=== PATIENT | male | born 1975 | race Two or more races ===

== ENCOUNTER 2023-05-27 08:13 | Emergency (ER) | payer MEDICAID, SELFPAY ==
--- NOTE | ~2023-05-27 | CT_ITS ---
EXAMINATION: CT ABDOMEN AND PELVIS WITH CONTRAST CLINICAL INFORMATION: Pain COMPARISON: None available. TECHNIQUE: Multidetector volumetric images were obtained from the superior aspect of the liver through the pubic symphysis following administration 85 mL of Omnipaque 350 intravenous contrast. Sagittal and coronal reformatted images were obtained on the technologist's workstation. Oral contrast: No This CT examination was performed using dose optimization techniques as appropriate, variously including the following: *Automated exposure control *Adjustment of mA and/or kV according to patient size (this includes techniques or standardized protocols for targeted exams where dose is matched to indication/reason for exam; i.e. extremities or head) *Use of iterative reconstruction technique DLP: 958 mGy-cm FINDINGS: LUNG BASES: 5 mm nodule right lung base LIVER, GALLBLADDER, AND BILIARY TREE: Low-density in the liver likely fatty change. Hepatitis cannot be excluded. Likely focal sparing around the gallbladder. The gallbladder is unremarkable with no evidence of radiopaque gallstones, gallbladder wall thickening, or obvious pericholecystic inflammatory changes. PANCREAS: Unremarkable. SPLEEN: Unremarkable. ADRENAL GLANDS: Unremarkable. KIDNEYS AND URETERS: Prominent renal collecting system and prominent right ureter which does lead up to a small 3 mm calcification at the UVJ. Nonobstructing calculus lower pole left kidney. Low-density lesion which is small lower pole left may well represent an evolving cyst. BLADDER: Bladder is decompressed GASTROINTESTINAL TRACT: The small and large bowel are unremarkable. The appendix is unremarkable. ABDOMINAL WALL: No significant hernia is appreciated. LYMPH NODES: Soft tissue density anterior to the vena cava could represent a prominent lymph node. Short axis I.7 cm. Differential would include lobulated extension of the liver. Another density adjacent short axis I.2 cm could represent another prominent node VASCULAR: Some atherosclerotic changes are noted. PELVIC VISCERA: Unremarkable. OSSEOUS STRUCTURES: Degenerative changes. No acute bony finding. CT/CT abdomen pelvis w IV con IMPRESSION: Mild hydronephrosis on the right which does lead up to 3 mm calculus at the UVJ. Overall decreased attenuation liver which may be consistent with fatty change. Hepatitis cannot be excluded. Findings consistent with soft tissue density in the zane which could represent prominent lymph nodes. These could be reactive to liver. No other bulky adenopathy in the abdomen pelvis. Malignancy cannot be excluded. I Would recommend a short-term follow-up here in 8 weeks for continued evaluation. 5 mm nodule at the right lung base. Fleischner criteria given below Per the 2017 revised Fleischner Society guidelines, no routine follow-up is necessarily required in low-risk patients, and consideration of 12 month follow-up CT is recommended for patients at high-risk for the development of pulmonary neoplasm. Fleischner guidelines were followed.
[2023-05-27 08:26] VITALS: BP 147/93; PULSE 71; RESP 22; TEMP 36.3; O2SAT 100; BMI 52.1
--- NOTE | 2023-05-27 09:12 | ED.GENADULT ---
HPI - General Adult General Chief complaint: Abdominal Pain Stated complaint: abd pain shooting down Time Seen by Provider: 05/27/23 09:11 Source: patient Mode of arrival: ambulatory Limitations: no limitations History of Present Illness HPI narrative: Patient is a 48 year old assigned male at with a history of DM presenting to the emergency department today with right sided lower abdominal pain. Patient states that over the last few days he has had right sided lower abdominal pain that radiates to his testicles with nausea. Patient denies any dizziness, lightheadedness, vomiting, fever, chills, blurry vision, double vision, loss of vision, chest pain, difficulty breathing, shortness of breath, back pain, night sweats, pain with urination, increased urinary frequency, increased urinary urgency, blood in his urine or stool, syncope or a near syncopal episode, recent trauma or falls, bowel incontinence, bladder incontinence, bowel retention, bladder retention, or any other complaints at this time. Onset (ago): day(s) Location: abdomen and right Severity: mild Severity scale (1-10): 3 Quality: aching and dull Pain Consistency: constant Relieving factors: none Exacerbating factors: none Associated symptoms: nausea/vomiting Treatments prior to arrival: none Related Data Previous Rx's Medication Instructions Recorded naproxen 500 mg tablet 500 mg PO BID 7 days #14 tabs 05/27/23 tamsulosin 0.4 mg capsule 0.4 mg PO DAILY #7 caps 05/27/23 Allergies Allergy/AdvReac Type Severity Reaction Status Date / Time Penicillins Allergy Mild UNKNOWN Verified 05/27/23 08:25 penicillin V Allergy Unknown unknown Verified 03/26/17 00:00 Review of Systems Constitutional: Constitutional: Reports no additional constitutional complaints, Denies chills, Denies fever(s) and Denies night sweats Eyes: Eyes: Reports no additional eye complaints, Denies blurry vision, Denies change in vision, Denies diplopia, Denies eye discharge, Denies loss of vision and Denies eye pain ENT: Denies dizziness Cardiovascular: Cardiovascular: Reports no additional cardiovascular complaints, Reports chest pain, Denies lightheadedness, Denies Loss of Consciousness and Denies dyspnea Respiratory: Respiratory: Reports no additional respiratory complaints and Denies dyspnea Gastrointestinal: Gastrointestinal: Reports no additional gastrointestinal complaints, Reports abdominal pain, Denies melena, Denies hematochezia, Denies change in bowel habits, Denies change in stool character, Reports nausea and Denies vomiting Genitourinary: Genitourinary: Reports no additional male genitourinary complaints, Denies hematuria, Denies oliguria, Denies difficulty urinating, Denies dysuria, Denies urinary frequency, Denies urinary hesitancy, Denies urinary incontinence and Denies urinary urgency Musculoskeletal: Musculoskeletal: Reports no additional musculoskeletal complaints, Denies numbness and Denies tingling Neurologic: Denies dizziness, Denies loss of vision, Denies numbness and Denies tingling Psychiatric: Psychiatric: Reports no additional psychiatric complaints Endocrine: Endocrine: Reports no additional endocrine complaints Hematologic/Lymphatic: Hematologic/Lymphatic: Reports no additional hematologic/lymphatic complaints Allergic/Immunologic: Allergic/Immunologic: Reports no additional allergic/immunologic complaints PMFSH Past Medical History Attestation statement: The following information was validated with the patient. Source: old records reviewed and nursing notes reviewed Social History Social History Unable to assess alcohol history related to: Unknown Smoked in Last 30 Days: Yes Use of substances other than those prescribed or required for medical reasons: No Advance Directives: No Physical Exam ED Vital Signs: Vital Signs - 24 hr 05/27/23 08:26 05/27/23 09:20 05/27/23 09:21 Temperature 97.4 F Pulse Rate 71 69 Respiratory Rate 22 H 18 18 Blood Pressure 147/93 H 129/77 Pulse Oximetry 100 97 Oxygen Delivery Method Room Air Room Air 05/27/23 11:16 Temperature Pulse Rate 65 Respiratory Rate 20 Blood Pressure 135/79 Pulse Oximetry 96 Oxygen Delivery Method Room Air BMI result Body Mass Index 52.1 Const General: cooperative, no acute distress, alert and awake Nutritional Appearance: well nourished Orientation/consciousness: patient oriented x3 Limitations: no limitations [facility] Head: Yes normal to inspection and Yes atraumatic Ears: hearing grossly normal bilaterally and external ears normal General nose exam: Normal external nose present, no nasal discharge noted and no epistaxis Face and sinus: Yes normal facial exam, No abrasion and No laceration Mouth: Normal oral and palatal mucosa present, no drooling and no muffled voice Eyes General: appearance normal, both eyes and all related structures Periorbital: periorbital findings normal Eyelids: Yes eyelids normal Conjunctivae: conjunctivae normal Pupils: Equal, round and reactive pupils present EOM: EOMs intact bilaterally Neck Neck: Yes normal visual inspection, Yes full ROM and Yes no lymphadenopathy Chest Chest palpation & inspection: normal inspection of the chest Resp Effort & Inspection: normal respiratory effort and able to speak in complete sentences Auscultation: clear to auscultation bilaterally Cardio Rate: regular rate Rhythm: regular rhythm GI Inspection: Yes normal to inspection Palpation (GI): Soft to palpation, not firm, nontender and no guarding Neuro General: patient oriented x3 and moves all extremities Cranial nerves: Yes Equal, round and reactive pupils present Cognition (Neuro): normal cognition Motor exam (neuro): 5/5 motor strength present throughout Sensory Exam: Normal double simultaneous stimulation for sensation Coordination: [id number] test normal Extrem General: Yes normal to inspection, Yes full ROM and Yes capillary refill normal Psych Appearance: grossly normal Mental Status: mental status grossly normal Affect: normal affect Attitude: cooperative Thought process: Normal thought process present Thought content: Normal thought content present Insight: Good insight present (Psych) Medications Administered Discontinued Medications Generic Name Dose Route Start Last Admin Trade Name Freq PRN Reason Stop Dose Admin Sodium Chloride 1,000 mls @ 999 mls/hr 05/27/23 09:15 05/27/23 10:59 Ns IV 05/27/23 10:15 Infused .Q1H1M TONY Infusion Iohexol 85 ml 05/27/23 10:30 05/27/23 10:31 Iohexol 350 Mg/Ml 100 Ml Infus..Btl IV 05/27/23 10:31 85 ml ONCE ONE Administration Morphine Sulfate 4 mg 05/27/23 09:15 05/27/23 09:20 Morphine Sulfate 4 Mg/Ml Cartridge IVPUSH 05/27/23 09:16 4 mg ONCE ONE Administration Protocol Ondansetron HCl 4 mg 05/27/23 09:15 05/27/23 09:20 Ondansetron Hcl 4 Mg/2 Ml Vial IVPUSH 05/27/23 09:16 4 mg ONCE ONE Administration Medical Decision Making Medical Decision Making [facility] Narrative: Patient is a 48 year old assigned male at with a history of DM presenting to the emergency department today with abdominal pain and nausea. Patient's physical exam was unremarkable. Patient's blood work was unremarkable. Patient's urine showed no acute process. Patient's abdominal CT showed a 3mm UVJ kidney stone, as well as a soft tissue density in the zane which radiology recommended following up on further. I explained my physical exam findings as well as all test results to the patient. I answered all questions asked by the patient. Patient received IV Zofran and Morphine which he stated helped his symptoms significantly. I stressed the importance of the patient taking his medication as prescribed. I stressed the importance of the patient following up with his primary care provider, a urologist, and a GI specialist. I stressed the importance of the patient returning to the emergency department immediately if his symptoms were to worsen or if he were to develop any dizziness, shortness of breath, difficulty breathing, chest pain, blurry vision, loss of vision, nausea, vomiting, abdominal pain, fever, chills, back pain, or any other complaints. Patient verbalized agreement and understanding with this treatment plan and discharge. Differential Diagnosis Differential Diagnoses: The differential diagnosis associated with the presentation includes Renal calculi Liver abnormality Admission/Observation Consideration of admission/observation: Escalation of care including admission/observation considered Patient would have been admitted to the hospital had his work up had any findings where hospital admission was appropriate and his clinical presentation warranted hospital admission. Lab Data MDM Lab Attestation statement: I reviewed the patient's lab results. My interpretation of these studies and their corresponding values is that they are grossly normal. 05/27/23 09:12 05/27/23 09:12 Labs: Lab Results 05/27/23 05/27/23 Range/Units 09:12 09:23 WBC 7.9 (4.8-10.8) X10*3/uL RBC 4.95 (4.60-5.80) X10*6/uL Hgb 14.8 (14.0-18.0) g/dl Hct 46.1 (42.0-52.0) % MCV 93.1 (80.0-98.0) fL MCH 29.9 (27.0-33.0) pg MCHC 32.1 (31.0-36.0) g/dl RDW 13.8 (11.0-16.0) % Plt Count 220 (160-400) X10*3/uL MPV 11.6 (9.4-12.4) fL Immature Gran % (Auto) 0.3 (0.0-0.4) % Neut % (Auto) 56.4 (45-73) % Lymph % (Auto) 31.7 (20-40) % [place] % (Auto) 7.5 (2-11) % Eos % (Auto) 3.6 (0-4) % Baso % (Auto) 0.5 (0-2) % Lymph # (Auto) 2.5 (1.2-4.9) X10*3/uL [place] # (Auto) 0.6 (0.1-1.2) X10*3/uL Eos # (Auto) 0.3 (0.0-0.4) X10*3/uL Baso # (Auto) 0.0 (0.0-0.2) X10*3/uL Abs Immat Gran (auto) 0.02 (0.00-0.03) X10*3/uL Absolute Neuts (auto) 4.4 (2.0-8.3) x10*3/uL Absolute Nucleated RBC 0.000 (0.0-0.012) X10*3/uL Nucleated RBC % (auto) 0.0 (0.0-0.2) /100WBC Sodium 140 (135-145) mmol/L Potassium 4.1 (3.3-5.1) mmol/L Chloride 107 (96-108) mmol/L Carbon Dioxide 25 (22-29) mmol/L Anion Gap 12 (12-20) BUN 8 L (9-16) mg/dL Creatinine 0.80 (0.5-1.4) mg/dL Estim Creat Clear Calc 151.2 Estimated GFR > 60 Random Glucose 191 H (60-115) mg/dL Calcium 9.1 (8.4-10.2) mg/dL Total Bilirubin 0.3 (0.0-1.0) mg/dL Direct Bilirubin 0.1 (0.0-0.5) mg/dL AST 24 (5-37) U/L ALT 36 (0-40) U/L Alkaline Phosphatase 95 (39-117) U/L Total Protein 8.0 (6.5-8.0) g/dL Albumin 4.0 (3.5-5.0) g/dL Lipase 33 (8-78) U/L Urine Color Yellow Urine Appearance Clear Urine pH 5.5 (5.0-9.0) Ur Specific [place] 1.025 (1.005-1.025) Urine Protein 30 (1+) H (Neg-Trace) mg/dL Urine Glucose (UA) Negative (Negative) mg/dL Urine Ketones Negative (Negative) mg/dL Urine Blood Trace H (Negative) Urine Nitrite Negative (Negative) Ur Leukocyte Esterase Negative (Negative) Urine RBC 6-10 H (0-2) /HPF Urine WBC 0-5 (0-5) /HPF Ur Squamous Epith Cells 0-2 (0-2) /HPF Urine Bacteria None Seen (None Seen) Hyaline Casts 0-2 (0-2) /LPF Independent Interpretation I performed an independent interpretation of an: CT Scan Interpretation: My interpretation is in agreement with the radiologist's impression of this imaging study. EXAMINATION: CT ABDOMEN AND PELVIS WITH CONTRAST CLINICAL INFORMATION: Pain COMPARISON: None available. TECHNIQUE: Multidetector volumetric images were obtained from the superior aspect of the liver through the pubic symphysis following administration 85 mL of Omnipaque 350 intravenous contrast. Sagittal and coronal reformatted images were obtained on the technologist's workstation. Oral contrast: No This CT examination was performed using dose optimization techniques as appropriate, variously including the following: *Automated exposure control *Adjustment of mA and/or kV according to patient size (this includes techniques or standardized protocols for targeted exams where dose is matched to indication/reason for exam; i.e. extremities or head) *Use of iterative reconstruction technique DLP: 958 mGy-cm FINDINGS: LUNG BASES: 5 mm nodule right lung base LIVER, GALLBLADDER, AND BILIARY TREE: Low-density in the liver likely fatty change. Hepatitis cannot be excluded. Likely focal sparing around the gallbladder. The gallbladder is unremarkable with no evidence of radiopaque gallstones, gallbladder wall thickening, or obvious pericholecystic inflammatory changes. PANCREAS: Unremarkable. SPLEEN: Unremarkable. ADRENAL GLANDS: Unremarkable. KIDNEYS AND URETERS: Prominent renal collecting system and prominent right ureter which does lead up to a small 3 mm calcification at the UVJ. Nonobstructing calculus lower pole left kidney. Low-density lesion which is small lower pole left may well represent an evolving cyst. BLADDER: Bladder is decompressed GASTROINTESTINAL TRACT: The small and large bowel are unremarkable. The appendix is unremarkable. ABDOMINAL WALL: No significant hernia is appreciated. LYMPH NODES: Soft tissue density anterior to the vena cava could represent a prominent lymph node. Short axis I.7 cm. Differential would include lobulated extension of the liver. Another density adjacent short axis I.2 cm could represent another prominent node VASCULAR: Some atherosclerotic changes are noted. PELVIC VISCERA: Unremarkable. OSSEOUS STRUCTURES: Degenerative changes. No acute bony finding. CT/CT abdomen pelvis w IV con IMPRESSION: Mild hydronephrosis on the right which does lead up to 3 mm calculus at the UVJ. Overall decreased attenuation liver which may be consistent with fatty change. Hepatitis cannot be excluded. Findings consistent with soft tissue density in the zane which could represent prominent lymph nodes. These could be reactive to liver. No other bulky adenopathy in the abdomen pelvis. Malignancy cannot be excluded. I Would recommend a short-term follow-up here in 8 weeks for continued evaluation. 5 mm nodule at the right lung base. Fleischner criteria given below Per the 2017 revised Fleischner Society guidelines, no routine follow-up is necessarily required in low-risk patients, and consideration of 12 month follow-up CT is recommended for patients at high-risk for the development of pulmonary neoplasm. Fleischner guidelines were followed. Dictated By: Vadim Julian MD Signed By: Electronically signed by Vadim Julian MD 05/27/23 5625 Radiology Impression Discussion of test interpretation with radiology: I have reviewed the radiologist's reading. Chronic Conditions Patient?s care impacted by: Diabetes Discharge Plan Discharge Clinical Impression: Abdominal pain, Calculus, renal, Abnormal CT of liver Patient Disposition: Home, Self-Care Instructions: Kidney Stones (ED), Abdominal Pain (ED) Additional Instructions: You have a kidney stone and some abnormal findings around your liver via CT. Both of these issues need followed up on. The kidney stone you will follow up with urology for and the liver issues you will follow up with GI for. Follow up with your primary care provider, GI specialist, and a urologist. Return to the emergency department immediately if your symptoms worsen or if you develop any dizziness, shortness of breath, difficulty breathing, chest pain, blurry vision, loss of vision, nausea, vomiting, abdominal pain, fever, chills, back pain, or any other complaints. Prescriptions: New tamsulosin 0.4 mg capsule 0.4 mg PO DAILY Qty: 7 0RF naproxen 500 mg tablet 500 mg PO BID 7 Days Qty: 14 0RF Referrals: [facility] [place] Gastroenterology Services [Provider Group] (Call to establish and follow up with a GI specialist for your abnormal CT findings.) [facility] Family Medicine [Provider Group] (Call to establish and follow up with a primary care provider. If you already have a primary care provider, please follow up with them.) [facility] Primary Care, [facility] [Provider Group] (Call to establish and follow up with a primary care provider. If you already have a primary care provider, please follow up with them.) [facility] Primary Care,Serjio [Provider Group] (Call to establish and follow up with a primary care provider. If you already have a primary care provider, please follow up with them.) [facility] [place] Urology Services [Provider Group] (Call to establish and follow up with a urologist.) Stand Alone Forms: Work/School Release Interventions: ED Discharge Assessment Last Done: 05/27/23 12:03 Discharge Date/Time: 05/27/23 12:04 Print Language: French
[2023-05-27 09:20] VITALS: RESP 18
[2023-05-27] MEDS: 0.9 % Sodium Chloride 1,000 ML 999 ML IV (09:20)
[2023-05-27] MEDS: Morphine Sulfate 4 MG/ML CARTRIDGE IVPUSH (09:20)
[2023-05-27] MEDS: ondansetron HCL 4 MG/2 ML VIAL IVPUSH (09:20)
[2023-05-27 09:21] VITALS: BP 129/77; PULSE 69; RESP 18; O2SAT 97
[2023-05-27 09:23] LABS: MANUAL DIFF FLAG NO
[2023-05-27 09:26] LABS: Basophils Percent Auto 0.5 % (0-2); Eosinophils Absolute Auto 0.3 X10*3/uL (0.0-0.4); Eosinophils Percent Auto 3.6 % (0-4); Hematocrit 46.1 % (42.0-52.0); Hemoglobin 14.8 g/dl (14.0-18.0); Imm Gran Abs Auto 0.02 X10*3/uL (0.00-0.03); Imm Gran Pct Auto 0.3 % (0.0-0.4); Lymphocytes Absolute Auto 2.5 X10*3/uL (1.2-4.9); Lymphocytes Percent Auto 31.7 % (20-40); Mean Corpuscular HGB Conc 32.1 g/dl (31.0-36.0); Mean Corpuscular Hemoglobin 29.9 pg (27.0-33.0); Mean Corpuscular Volume 93.1 fL (80.0-98.0); Mean Platelet Volume 11.6 fL (9.4-12.4); Monocytes Absolute Auto 0.6 X10*3/uL (0.1-1.2); Monocytes Percent Auto 7.5 % (2-11); Neutrophils Absolute Auto 4.4 x10*3/uL (2.0-8.3); Neutrophils Percent Auto 56.4 % (45-73); Platelet Count 220 X10*3/uL (160-400); Red Blood Count 4.95 X10*6/uL (4.60-5.80); Red Cell Distribution Width 13.8 % (11.0-16.0); White Blood Count 7.9 X10*3/uL (4.8-10.8)
[2023-05-27 09:37] LABS: Alanine Aminotransferase 36 U/L (0-40); Alkaline Phosphatase 95 U/L (39-117); Anion Gap 12 (12-20); Aspartate Amino Transferase 24 U/L (5-37); Bilirubin Direct 0.1 mg/dL (0.0-0.5); Bilirubin Total 0.3 mg/dL (0.0-1.0); Blood Urea Nitrogen 8 mg/dL (9-16); Calcium 9.1 mg/dL (8.4-10.2); Carbon Dioxide 25 mmol/L (22-29); Chloride 107 mmol/L (96-108); Creatinine Clr Calc Pharmacy 151.2; Estimated Glomerular Filt Rate > 60; Glucose Random 191 mg/dL (60-115); Lipase 33 U/L (8-78); Potassium 4.1 mmol/L (3.3-5.1); Sodium 140 mmol/L (135-145)
[2023-05-27 09:38] LABS: Appearance Urine Clear; Color Urine Yellow; Glucose Urine UA Negative (Negative); Leukocyte Esterase Urine Negative (Negative); Nitrite Urine Negative (Negative); PH 5.5 (5.0-9.0); Specific Gravity - Urine 1.025 (1.005-1.025); UMIC TRIGGER UACC YES; Urine Blood Trace (Negative); Urine Ketones Negative (Negative); Urine Protein 30 (1+) mg/dL (Neg-Trace)
[2023-05-27 09:42] LABS: Bacteria Urine None Seen (None Seen); Hyaline Casts Urine 0-2 /LPF (0-2); Squamous Epithelial Cell Urine 0-2 /HPF (0-2); WBC Urine 0-5 /HPF (0-5)
[2023-05-27] MEDS: iohexoL 350 MG/ML 100 ML INFUS..BTL 85 ML IV (10:31)
[2023-05-27 11:16] VITALS: BP 135/79; PULSE 65; RESP 20; O2SAT 96
== END 2023-05-27 12:04 | disposition home or self-care (01) ==
PROVIDERS: Physician Assistant Medical; Emergency Provider Emergency Medicine
DX: N20.0 Calculus of kidney (principal); R10.31 Right lower quadrant pain; R11.2 Nausea with vomiting, unspecified; Z79.899 Other long term (current) drug therapy
CPT/HCPCS: 36415; 74177; 80048; 80076; 81001; 83690; 85025; 96361; 96374; 96375; 99284; J2270; J2405; Q9967

== ENCOUNTER 2023-07-09 13:17 | Outpatient (REF) | payer OTHER, SELFPAY ==
--- NOTE | ~2023-07-09 | XR_ITS ---
EXAMINATION: XR KNEE, LEFT CLINICAL INFORMATION: Reason for Exam PAIN COMPARISON: None TECHNIQUE: 3 views of the knee FINDINGS: No acute fracture or dislocation. Moderate degenerative changes in the knee with loss of medial compartment joint space and tricompartment osteophytes. Small suprapatellar joint effusion. Soft tissues are unremarkable. XR/XR knee LT 2V IMPRESSION: * No acute osseous abnormality. * Moderate degenerative changes of the knee. Small suprapatellar joint effusion.
== END 2023-07-09 13:18 | disposition home or self-care (01) ==
LOC: HO.HHCX 13:17
PROVIDERS: Visit Provider Nurse Practitioner Primary Care
DX: M25.562 Pain in left knee (principal); G89.29 Other chronic pain
CPT/HCPCS: 73560

== ENCOUNTER 2023-08-03 10:36 | Outpatient (REF) | payer OTHER, SELFPAY ==
[2023-08-03 12:31] LABS: Cholesterol 134 mg/dL (<200); HDL Cholesterol 37 mg/dL (>40); LDL Cholesterol Calculated 79 mg/dL (<100); Triglycerides 92 mg/dL (<150)
[2023-08-03 12:38] LABS: HBS Num1 0.59 mIU/mL (0-7.99); HBc Num1 0.06 S/CO (0.00-0.79); HBsAGNum1 0.27 S/CO (0.00-0.99); HIV AB/AG Nonreactive (Nonreactive); HIV Num 1 0.04 S/CO (0.00-0.99); Hepatitis A Antibody IgM 0.16 Index (0-0.79); Hepatitis B Core Antibody Nonreactive (Nonreactive); Hepatitis B Surface Antigen Negative (Negative); ~HepC Num1 0.16 S/CO (0.00-0.79); ~Hepatitis A Antibody IgM Nonreactive (Nonreactive); ~Hepatitis B Surface Antibody NONREACTIVE (Nonreactive); ~Hepatitis C Antibody Nonreactive (Nonreactive)
[2023-08-03 12:46] LABS: Creatinine Urine 121.98 mg/dL; Microalbum/Creatinine Ratio Ur 22.9 ug/mg cr (<30)
[2023-08-05 17:28] LABS: RPR Rapid Plasma Reagin NON-REACTIVE (NON-REACTIVE)
== END 2023-08-03 10:37 | disposition home or self-care (01) ==
LOC: HO.HHCL 10:36
PROVIDERS: Visit Provider Nurse Practitioner Primary Care
DX: Z11.3 Encounter for screening for infections with a predominantly sexual mode of transmission (principal); Z11.4 Encounter for screening for human immunodeficiency virus [HIV]; E11.65 Type 2 diabetes mellitus with hyperglycemia; R93.5 Abnormal findings on diagnostic imaging of other abdominal regions, including retroperitoneum
CPT/HCPCS: 36415; 80061; 82043; 82570; 86592; 86704; 86706; 86709; 86803; 87340; 87389

== ENCOUNTER 2023-08-13 10:09 | Emergency (ER) | payer MEDICAID, SELFPAY ==
--- NOTE | ~2023-08-13 | XR_ITS ---
EXAMINATION: XR KNEE, LEFT CLINICAL INFORMATION: Left knee pain COMPARISON: 07/09/2023. TECHNIQUE: Four views of the left knee. FINDINGS: No new acute fracture or dislocation seen. There is mild to moderate narrowing in the medial joint space compartment. No osteochondral lesions. Spurring changes of the tibial plateau, femoral condyles, and patella. No significant joint effusion. Fibular head is intact. XR/XR knee LT 4V IMPRESSION: Degenerative changes. No acute fracture or dislocation.
[2023-08-13 10:12] VITALS: BP 169/95; PULSE 90; RESP 20; TEMP 37; O2SAT 97; BMI 53.0
--- NOTE | 2023-08-13 13:18 | ED_ITS ---
HPI - Extremity Injury (Lower) General Chief Complaint: Extremity Injury, Lower Stated Complaint: Knee pain Time Seen by Provider: 08/13/23 13:05 Source: patient Mode of arrival: ambulatory Limitations: no limitations History of Present Illness HPI Narrative: 48 yo male with history of DM here with complaints of right knee pain x 1.5 week. No known injury or trauma recently. patient did have a fall about 6 year s ago landing on the knee and has had intermittent pain since then. He was never seen after the injury. Patient did see his primary care doctor on July 04 for this and had an outpatient x-ray but he does not know the results of this. He is taking naproxen at home with continued symptoms. He denies any associated numbness, tingling or weakness of the extremity. No redness, swelling or fevers or chills. Related Data Previous Rx's Medication Instructions Recorded naproxen 500 mg tablet 500 mg PO BID 7 days #14 tabs 05/27/23 tamsulosin 0.4 mg capsule 0.4 mg PO DAILY #7 caps 05/27/23 cyclobenzaprine 10 mg tablet 10 mg PO TID PRN muscle spasm #15 08/13/23 tabs diclofenac sodium 1 % topical gel 2 g topical QID #100 grams 08/13/23 (Voltaren Arthritis Pain) lidocaine 5 % topical patch 1 patch topical DAILY #15 ea 08/13/23 (Lidoderm) naproxen 500 mg tablet 500 mg PO BID PRN pain #30 tabs 08/13/23 Allergies Allergy/AdvReac Type Severity Reaction Status Date / Time Penicillins Allergy Mild UNKNOWN Verified 08/13/23 10:15 penicillin V Allergy Unknown unknown Verified 08/13/23 10:15 Review of Systems Review of Systems: Yes all other systems are reviewed and are negative Constitutional: Constitutional: Reports no additional constitutional complaints, Denies body ache(s), Denies chills, Denies fever(s), Denies headache(s) and Denies weakness Eyes: Eyes: Reports no additional eye complaints and Denies change in vision ENT: Reports system reviewed and no additional complaints, except as documented, Denies dizziness, Denies headache(s), Denies nasal congestion, Denies nasal discharge and Denies neck pain Cardiovascular: Cardiovascular: Reports no additional cardiovascular complaints, Denies chest pain, Denies leg edema and Denies dyspnea Respiratory: Respiratory: Reports no additional respiratory complaints, Denies cough and Denies dyspnea Gastrointestinal: Gastrointestinal: Reports no additional gastrointestinal complaints, Denies abdominal pain, Denies diarrhea, Denies nausea and Denies vomiting Genitourinary: Genitourinary: Denies urinary incontinence Musculoskeletal: Musculoskeletal: Reports no additional musculoskeletal complaints, Denies back pain, Reports arthralgias, Denies joint swelling, Denies limited range of motion, Denies neck pain, Denies numbness and Denies tingling Integumentary/Breasts: Skin/Breast: Reports system reviewed and no additional complaints, except as docu and Denies rash Neurologic: Reports system reviewed and no additional complaints, except as documented, Denies Abnormal speech present, Denies dizziness, Denies headache(s), Denies numbness, Denies tingling and Denies weakness PMFSH Past Medical History Attestation statement: The following information was validated with the patient. Source: old records reviewed and nursing notes reviewed Social History Social History Unable to assess alcohol history related to: Unknown Advance Directives: No Physical Exam Vital Signs: Vital Signs: Last Vital Signs Temp 98.6 F 08/13/23 10:12 Pulse 90 08/13/23 10:12 Resp 20 08/13/23 10:12 BP 169/95 H 08/13/23 10:12 Pulse Ox 97 08/13/23 10:12 O2 Del Method Room Air 08/13/23 10:12 BMI result Body Mass Index 53.0 Const: General: cooperative, healthy appearing, comfortable and no acute distress Orientation/consciousness: patient oriented x3 Limitations: no limitations HEENT: Head: Yes normal to inspection Ears: hearing grossly normal bilaterally General nose exam: Normal external nose present Face and sinus: Yes normal facial exam Mouth: Normal oral and palatal mucosa present Throat: Yes posterior oropharynx normal Eyes: General: appearance normal, both eyes and all related structures Pupils: Equal, round and reactive pupils present Neck: Neck: Yes normal visual inspection Chest: Chest palpation & inspection: normal inspection of the chest Resp: Effort & Inspection: normal respiratory effort Auscultation: clear to auscultation bilaterally Cardio: Rate: regular rate Rhythm: regular rhythm Peripheral pulses: Peripheral pulses 2+ throughout GI: Inspection: Yes normal to inspection Palpation (GI): Soft to palpation and nontender Auscultation: normal bowel sounds Back/Spine/Pelvis: Thoracic/Lumbar Spine: thoracic and lumbar spine normal to inspection Skin: General skin exam: no rashes or lesions noted Neuro: General: patient oriented x3, no focal motor deficits and normal sensation to monofilament Cranial nerves: Yes Equal, round and reactive pupils present Cognition (Neuro): normal cognition Speech: No Abnormal speech present Gait exam (Neuro): Normal gait present Motor exam (neuro): 5/5 motor strength present throughout Extrem: Other: There is tenderness to the left anterior knee with full active and passive range of motion. Normal DP and PT pulses. Normal sensation. No posterior knee pain. No swelling or pain over the left calf. General: Yes normal to inspection Course Course Course Narrative: X-rays show Degenerative changes with no other focal finding. Patient be sent home with supportive measures and recommendations to follow up outpatient with primary care and/or Orthopedics. Reviewed worrisome signs and symptoms of when to return to the emergency room. Comfortable plan for discharge home. Medical Decision Making Medical Decision Making [facility] Narrative: 48 yo male with history of DM here with complaints of right knee pain x 1.5 week. No known injury or trauma recently. patient did have a fall about 6 years ago landing on the knee and has had intermittent pain since then. He was never seen after the injury. Patient did see his primary care doctor on July 04 for this and had an outpatient x-ray but he does not know the results of this. He is taking naproxen at home with continued symptoms. He denies any associated numbness, tingling or weakness of the extremity. No redness, swelling or fevers or chills. There is tenderness to the left anterior knee with full active and passive range of motion. Normal DP and PT pulses. Normal sensation. No posterior knee pain. No swelling or pain over the left calf. Will check x-rays Differential Diagnosis Differential Diagnoses: The differential diagnosis associated with the presentation includes contusion, sprain, strain, ligamental injury, arthritis No clinical findings concerning for septic joint, DVT, cellulitis Admission/Observation Consideration of admission/observation: Escalation of care including admission/observation considered low concern for vascular injury, complex fracture or dislocation or septic joint, DVT or cellulitis requiring advanced imaging, urgent orthopedic consultation Independent Interpretation I performed an independent interpretation of an: Plain X-Ray Interpretation: I independently reviewed the x-ray and agree with the radiology report Radiology Impression Discussion of test interpretation with radiology: I have reviewed the radiologist's reading. Radiologist Impression: Launch?Image [address] [address] XRay Report Signed Patient: Nixon Higginbotham MR#: [id number] : 1975 Acct:[id number] Age/Sex: 48 / M ADM Date: 08/13/23 Loc: HO.ED Attending Dr: Ordering Physician: Generic ED Physician Date of Service: 08/13/23 Procedure(s): XR knee LT 4V Accession Number(s): [id number] cc: Generic ED Physician; SHANIQUE COOPER NP~ EXAMINATION: XR KNEE, LEFT CLINICAL INFORMATION: Left knee pain COMPARISON: 07/09/2023. TECHNIQUE: Four views of the left knee. FINDINGS: No new acute fracture or dislocation seen. There is mild to moderate narrowing in the medial joint space compartment. No osteochondral lesions. Spurring changes of the tibial plateau, femoral condyles, and patella. No significant joint effusion. Fibular head is intact. XR/XR knee LT 4V IMPRESSION: Degenerative changes. No acute fracture or dislocation. Independent Historian Clinical information obtained from an independent historian. History obtained from or confirmed by: Spouse Tests considered The following testing was considered but not selected: low concern for vascular injury, complex fracture or dislocation or septic joint, DVT or cellulitis requiring advanced imaging Prescription Management I considered prescription management with: Pain Medication Chronic Conditions Patient?s care impacted by: Diabetes Discharge Plan Discharge Clinical Impression: Knee pain Patient Disposition: Home, Self-Care Instructions: Knee Pain (ED) Additional Instructions: take the medications as prescribed Apply ice, elevate the limb See your doctor for any continued symptoms as discussed. You may need to see orthopedic for continued pain. You will need a referral from your PCP for this likely Prescriptions: New diclofenac sodium [Voltaren Arthritis Pain] 1 % gel 2 g topical QID Qty: 100 0RF Rx Instructions: apply to single elbow, wrist or hand; for hand includes palm/fingers/back of hand lidocaine [Lidoderm] 5 % adhesive patch,medicated 1 patch topical DAILY Qty: 15 0RF Rx Instructions: leave on most painful area for up to 12 hrs cyclobenzaprine 10 mg tablet 10 mg PO TID PRN (Reason: muscle spasm) Qty: 15 0RF naproxen 500 mg tablet 500 mg PO BID PRN (Reason: pain) Qty: 30 0RF No Action tamsulosin 0.4 mg capsule 0.4 mg PO DAILY Qty: 7 0RF naproxen 500 mg tablet 500 mg PO BID 7 Days Qty: 14 0RF Referrals: [facility] [Provider Group] - 1 week Interventions: ED Discharge Assessment Last Done: 08/13/23 13:39 Discharge Date/Time: 08/13/23 13:41
--- NOTE | 2023-08-13 13:40 | PC.NURSE ---
norman wrap applied to left knee- well tolerated by pt- ambulatory from dept
== END 2023-08-13 13:41 | disposition home or self-care (01) ==
PROVIDERS: Emergency Provider Emergency Medicine Emergency Medical Services; PCP Nurse Practitioner Primary Care
DX: M25.562 Pain in left knee (principal)
CPT/HCPCS: 73564; 99283

== ENCOUNTER 2023-08-28 11:23 | Outpatient (REF) | payer MEDICAID, SELFPAY ==
[2023-08-28 14:23] LABS: Alanine Aminotransferase 36 U/L (0-40); Alkaline Phosphatase 103 U/L (39-117); Anion Gap 12 (12-20); Aspartate Amino Transferase 24 U/L (5-37); Bilirubin Total 0.2 mg/dL (0.0-1.0); Blood Urea Nitrogen 10 mg/dL (9-16); Calcium 9.8 mg/dL (8.4-10.2); Carbon Dioxide 25 mmol/L (22-29); Chloride 106 mmol/L (96-108); Estimated Glomerular Filt Rate > 60; Glucose Random 140 mg/dL (60-115); Potassium 3.9 mmol/L (3.3-5.1); Sodium 139 mmol/L (135-145); Total Protein 8.1 g/dL (6.5-8.0)
== END 2023-08-28 11:24 | disposition home or self-care (01) ==
LOC: HO.HHCL 11:23
PROVIDERS: Visit Provider Internal Medicine
DX: Z11.1 Encounter for screening for respiratory tuberculosis (principal); L40.0 Psoriasis vulgaris
CPT/HCPCS: 36415; 80053; 85025; 86481

== ENCOUNTER 2023-09-22 10:04 | Outpatient (REF) | payer MEDICAID, SELFPAY ==
--- NOTE | ~2023-09-22 | CT_ITS ---
EXAMINATION: CT ABDOMEN AND PELVIS WITH CONTRAST CLINICAL INFORMATION: Follow-up soft tissue density anterior to vena cava COMPARISON: 05/27/2026 TECHNIQUE: Multidetector volumetric images were obtained from the superior aspect of the liver through the pubic symphysis following administration 85 mL of Omnipaque 350 intravenous contrast. Sagittal and coronal reformatted images were obtained on the technologist's workstation. Oral contrast: No This CT examination was performed using dose optimization techniques as appropriate, variously including the following: *Automated exposure control *Adjustment of mA and/or kV according to patient size (this includes techniques or standardized protocols for targeted exams where dose is matched to indication/reason for exam; i.e. extremities or head) *Use of iterative reconstruction technique DLP: 846 mGy-cm FINDINGS: LUNG BASES: There is 0.3 cm nodule seen on image 7 series 8 most likely calcified, 0.4 cm nodule seen on image 4 and 0.2 cm nodule seen in image 2. LIVER, GALLBLADDER, AND BILIARY TREE: Liver is of low attenuation due to hepatic steatosis. No intrahepatic masses or ductal dilatation seen. The gallbladder is unremarkable with no evidence of radiopaque gallstones, gallbladder wall thickening, or obvious pericholecystic inflammatory changes. PANCREAS: Unremarkable. SPLEEN: Unremarkable. ADRENAL GLANDS: Unremarkable. KIDNEYS AND URETERS: The left calculus moved from the lower pole 2 proximal left ureter without significant hydroureteronephrosis. The calculus measured 0.6 cm. There is 1.0 cm cyst in the lower pole of left kidney Seen previously is stone in the right UVJ has been resolved. BLADDER: Unremarkable. GASTROINTESTINAL TRACT: The small and large bowel are unremarkable. The appendix is unremarkable. ABDOMINAL WALL: No significant hernia is appreciated. LYMPH NODES: There is stable 1.8 x 1.4 cm lymph node anterior to IVC in the zane hepatis. VASCULAR: Unremarkable. PELVIC VISCERA: Unremarkable. OSSEOUS STRUCTURES: There are mild changes of degenerative spondylosis. CT/CT abdomen pelvis w IV con IMPRESSION: 1. Interval migration of left renal calculus to the proximal left ureter without significant hydroureteronephrosis. 2. Resolution of right UVJ calculus. 3. Hepatic steatosis. 4. Stable lymph node anterior to IVC in the zane hepatis. Fleischner guidelines were followed.
[2023-09-22] MEDS: iohexoL 350 MG/ML 100 ML INFUS..BTL IV (13:03)
[2023-09-22] MEDS: Barium Sulfate Oral (Mocha) 450 ML ORAL.SUSP 900 ML PO (13:04)
== END 2023-09-22 10:05 | disposition home or self-care (01) ==
LOC: HO.CT 10:04
PROVIDERS: PCP Nurse Practitioner Primary Care; Visit Provider Nurse Practitioner Primary Care
DX: R93.5 Abnormal findings on diagnostic imaging of other abdominal regions, including retroperitoneum (principal)
CPT/HCPCS: 74177; Q9967

== ENCOUNTER 2023-10-19 08:00 | Outpatient (RCR) | payer MEDICAID, SELFPAY | END 2023-11-06 08:20 | disposition home or self-care (01) | LOC: HO.PT 08:00 | PROVIDERS: PCP Nurse Practitioner Primary Care; Visit Provider Nurse Practitioner Primary Care | DX: M25.562 Pain in left knee (principal) | CPT/HCPCS: 97035; 97110; 97140; 97161 ==

== ENCOUNTER 2023-12-02 04:53 | Emergency (ER) | payer MEDICAID, SELFPAY ==
--- NOTE | ~2023-12-02 | CT_ITS ---
EXAMINATION: CT ABDOMEN AND PELVIS WITHOUT CONTRAST CLINICAL INFORMATION: Renal calculi COMPARISON: CT scan of abdomen and pelvis on 09/23/2023 TECHNIQUE: Multidetector volumetric imaging was performed from the superior aspect of the liver through the pubic symphysis. Sagittal and coronal reformatted images were obtained on the technologist's workstation. This CT examination was performed using dose optimization techniques as appropriate, variously including the following: *Automated exposure control *Adjustment of mA and/or kV according to patient size (this includes techniques or standardized protocols for targeted exams where dose is matched to indication/reason for exam; i.e. extremities or head) *Use of iterative reconstruction technique DLP: 1078.16 mGy-cm FINDINGS: CT ABDOMEN LUNG BASES: Unchanged 3.8 mm nodule is seen at posterior border of right lower lobe posterior basal segment, series 6 image #1. Unchanged 4.6 mm nodule is seen in right middle lobe lateral segment, series 6 image #7. Unchanged 4.5 mm calcified granuloma is seen in right lower lobe anterior basal segment, series 6 image #9. LIVER: There is persistent marked hepatic steatosis, mean attenuation of 8 Hounsfield units, compared to splenic attenuation of 29 Hounsfield units. GALLBLADDER AND BILIARY TREE: Gallbladder appears unremarkable without calcified stones. Common bile duct is not dilated. SPLEEN: The spleen is normal in size without focal lesion on noncontrast enhanced images. PANCREAS: The pancreas appears unremarkable on noncontrast enhanced images. ADRENAL GLANDS: Adrenal glands are normal in size without focal lesion bilaterally. KIDNEYS: The right kidney is normal in size without stones. Left kidney is diffusely swollen with marked perinephric soft tissue stranding. There are mild left hydronephrosis and left hydroureter due to obstruction by a proximal left ureteric stone measuring 0.7 x 0.4 cm in size at L4 level. No right caliectasis or dilated pelvis is seen. No dilated right ureter is found. BOWELS: There is no abnormal dilatation of the large and small bowel loops. RETROPERITONEUM: At upper L1 level, there is persistent posterior periportal lymph node directly anterior to the inferior vena cava, measuring 1.1 cm in short axis (previously 1.4 cm), series 3 image #31. BLOOD VESSELS: Abdominal aorta is normal in size and smooth in outline. ABDOMINAL WALL: Small umbilical hernia containing mesenteric fat is seen. PERITONEUM: There is no ascites. There were no abdominal peritoneal inflammatory changes seen. No free peritoneal air was seen. BONES: Multilevel large sharp syndesmophytes are present. I No fracture or dislocation. No focal bone lesion diagnostic of metastatic disease could be seen in the lumbar region. CT PELVIS URINARY BLADDER: The visualized urinary bladder is normal, filled with urine. No intraluminal stones are found. No abnormally dilated distal ureters are seen. BOWELS: There is no abnormal dilatation of the large and small bowel loops. Normal air-filled appendix is seen projecting medial and posterior to the cecum. GENITAL ORGANS: Seminal vesicles are unremarkable. Prostate gland is normal. LYMPH NODES: No abnormally enlarged iliac or inguinal lymph nodes are seen. PERITONEUM: No inflammatory changes, ascites or free peritoneal air are found in the pelvis. BONES: No fracture or dislocation. No focal bone lesion diagnostic of metastatic disease could be seen in the pelvis. CT/CT abdomen pelvis wo IV con IMPRESSION: 1. Interval development of left perinephric congested soft tissue stranding, Mild left hydronephrosis and left hydroureter due to obstruction by a a persistent proximal left ureteric stone measuring 0.7 x 0.4 cm in size at L4 level. 2. Persistent marked hepatic steatosis. 3. Unchanged, no evidence of right renal calculus or hydronephrosis. 4. Interval decrease in size of the upper retroperitoneal precaval lymph node. 5. Unchanged right lower lobe and right middle lobe pulmonary nodules less than 6 mm in size. According to the UPDATED 2017 Fleischner Society recommendations, the advised follow-up imaging for solid nodules <6 mm in the middle/lower lobes is no routine follow up.
[2023-12-02 04:57] VITALS: BP 144/80; PULSE 81; RESP 18; TEMP 36.6; O2SAT 97; BMI 49.1
[2023-12-02 06:48] LABS: MANUAL DIFF FLAG NO
[2023-12-02 06:49] LABS: Alanine Aminotransferase 23 U/L (0-40); Albumin Level 3.8 g/dL (3.5-5.0); Alkaline Phosphatase 90 U/L (39-117); Anion Gap 15 (12-20); Aspartate Amino Transferase 19 U/L (5-37); Bilirubin Total 0.5 mg/dL (0.0-1.0); Blood Urea Nitrogen 13 mg/dL (9-16); Calcium 9.5 mg/dL (8.4-10.2); Carbon Dioxide 21 mmol/L (22-29); Chloride 106 mmol/L (96-108); Creatinine Clr Calc Pharmacy 110.2; Estimated Glomerular Filt Rate > 60; Glucose Random 120 mg/dL (60-115); Potassium 4.1 mmol/L (3.3-5.1); Sodium 138 mmol/L (135-145); Total Protein 7.8 g/dL (6.5-8.0)
[2023-12-02 06:53] LABS: Basophils Percent Auto 0.3 % (0-2); Eosinophils Absolute Auto 1.4 X10*3/uL (0.0-0.4); Eosinophils Percent Auto 10.8 % (0-4); Hematocrit 45.1 % (42.0-52.0); Hemoglobin 14.9 g/dl (14.0-18.0); Imm Gran Abs Auto 0.03 X10*3/uL (0.00-0.03); Imm Gran Pct Auto 0.2 % (0.0-0.4); Lymphocytes Absolute Auto 2.6 X10*3/uL (1.2-4.9); Lymphocytes Percent Auto 20.6 % (20-40); Mean Corpuscular Hemoglobin 29.6 pg (27.0-33.0); Mean Corpuscular Volume 89.7 fL (80.0-98.0); Mean Platelet Volume 11.5 fL (9.4-12.4); Monocytes Percent Auto 7.5 % (2-11); Neutrophils Absolute Auto 7.7 x10*3/uL (2.0-8.3); Neutrophils Percent Auto 60.6 % (45-73); Platelet Count 208 X10*3/uL (160-400); Red Blood Count 5.03 X10*6/uL (4.60-5.80); Red Cell Distribution Width 13.6 % (11.0-16.0); White Blood Count 12.7 X10*3/uL (4.8-10.8)
[2023-12-02 08:39] LABS: Appearance Urine Clear; Color Urine Yellow; Glucose Urine UA Negative (Negative); Leukocyte Esterase Urine Negative (Negative); Nitrite Urine Negative (Negative); PH 5.5 (5.0-9.0); Specific Gravity - Urine 1.025 (1.005-1.025); UMIC TRIGGER UACC YES; Urine Blood Trace (Negative); Urine Ketones Negative (Negative); Urine Protein Negative (Neg-Trace)
[2023-12-02 08:45] LABS: Bacteria Urine None Seen (None Seen); Hyaline Casts Urine 0-2 /LPF (0-2); Squamous Epithelial Cell Urine 0-2 /HPF (0-2); WBC Urine 0-5 /HPF (0-5)
--- NOTE | 2023-12-02 15:58 | ED.ABDPAIN ---
HPI - Abdominal Pain General Chief Complaint: Abdominal Pain Stated Complaint: Abd pain Time Seen by Provider: 12/02/23 14:31 Source: patient Mode of arrival: ambulatory History of Present Illness HPI narrative: 48-year-old male with history of renal colic presents with onset of left flank pain radiating into his groin area that started at 03:00 a.m. in the morning and associated with nausea and some chills but denies any difficulty urination and instead reports some difficulty with defecation. Related Data Previous Rx's ?Medication ?Instructions ?Recorded naproxen 500 mg tablet 500 mg PO BID 7 days #14 tabs 05/27/23 tamsulosin 0.4 mg capsule 0.4 mg PO DAILY #7 caps 05/27/23 cyclobenzaprine 10 mg tablet 10 mg PO TID PRN muscle spasm #15 08/13/23 tabs diclofenac sodium 1 % topical gel 2 g topical QID #100 grams 08/13/23 (Voltaren Arthritis Pain) lidocaine 5 % topical patch 1 patch topical DAILY #15 ea 08/13/23 (Lidoderm) naproxen 500 mg tablet 500 mg PO BID PRN pain #30 tabs 08/13/23 ketorolac 10 mg tablet 10 mg PO Q6H PRN pain #20 tabs 12/02/23 ondansetron 4 mg disintegrating 4 mg PO Q8H PRN nausea and 12/02/23 tablet vomiting 4 days #7 tabs tamsulosin 0.4 mg capsule (Flomax) 0.4 mg PO BEDTIME #5 caps 12/02/23 Allergies Allergy/AdvReac Type Severity Reaction Status Date / Time Penicillins Allergy Mild UNKNOWN Verified 12/02/23 04:58 penicillin V Allergy Unknown unknown Verified 12/02/23 04:58 Review of Systems Review of Systems Pertinent positives and negatives as stated in HPI PMFSH Past Medical History Source: nursing notes reviewed Social History Social History Unable to assess alcohol history related to: Unknown Advance Directives: No Advance Directives Information Provided: No Physical Exam ED Vital Signs: Vital Signs - 24 hr 12/02/23 04:57 Temperature 97.9 F Pulse Rate 81 Respiratory Rate 18 Blood Pressure 144/80 H Pulse Oximetry 97 Oxygen Delivery Method Room Air BMI result Body Mass Index 49.1 VITAL SIGNS: Reviewed. GENERAL: Elevated BMI, Well developed, well nourished, in no acute distress. HEAD: Normocephalic/atraumatic EYES: PERRLA, EOMI LUNGS: Normal breath sounds. No adventitious sounds or accessory muscle use. SpO2<97> CARDIOVASCULAR: Regular rate and rhythm without noted murmurs ABDOMEN: Soft, non-tender, non-distended with bowel sounds. MUSCULOSKELETAL: No tenderness, deformities, or effusions noted on gross inspection. EXTREMITIES: No cyanosis, clubbing or edema. SKIN: Inspection of the skin reveals no rashes NEUROLOGIC: Alert and oriented x 4. Strength and sensation to light touch were grossly intact x 4. Medical Decision Making Medical Decision Making [facility] Narrative: 48-year-old male with history and clinical presentation, DDX: Renal colic, UTI, possible diverticulitis, low clinical suspicion for obstruction. I reviewed all investigations and patient has a mild leukocytosis that is felt to be noninfectious in nature, no anemia or thrombocytopenia. Chemistry indices are negative for BOB/electrolyte/liver enzyme derangements. Urinalysis significant for hematuria but no infection. My interpretation of CT scan is patient has a proximal obstructing stone in the left ureter with corresponding hydro, no evidence of BOB and patient otherwise appears somewhat comfortable. Patient offered Toradol as well as Flomax. 1630: I re-evaluated the patient who states that his pain is well controlled currently and not having any nausea or difficulty urinating. He understands he will be discharged with medications and he is instructed to follow-up with urology 1st thing in the morning. Differential Diagnosis Differential Diagnoses: The differential diagnosis associated with the presentation includes Please see the discussion above Admission/Observation Consideration of admission/observation: Escalation of care including admission/observation considered Please see the discussion above Lab Data [facility] Lab Attestation statement: I reviewed the patient's lab results. Please see the discussion above 12/02/23 05:04 12/02/23 05:04 Labs: Lab Results 12/02/23 12/02/23 Range/Units 05:04 08:21 WBC 12.7 H (4.8-10.8) X10*3/uL RBC 5.03 (4.60-5.80) X10*6/uL Hgb 14.9 (14.0-18.0) g/dl Hct 45.1 (42.0-52.0) % MCV 89.7 (80.0-98.0) fL MCH 29.6 (27.0-33.0) pg MCHC 33.0 (31.0-36.0) g/dl RDW 13.6 (11.0-16.0) % Plt Count 208 (160-400) X10*3/uL MPV 11.5 (9.4-12.4) fL Immature Gran % (Auto) 0.2 (0.0-0.4) % Neut % (Auto) 60.6 (45-73) % Lymph % (Auto) 20.6 (20-40) % [place] % (Auto) 7.5 (2-11) % Eos % (Auto) 10.8 H (0-4) % Baso % (Auto) 0.3 (0-2) % Lymph # (Auto) 2.6 (1.2-4.9) X10*3/uL [place] # (Auto) 1.0 (0.1-1.2) X10*3/uL Eos # (Auto) 1.4 H (0.0-0.4) X10*3/uL Baso # (Auto) 0.0 (0.0-0.2) X10*3/uL Abs Immat Gran (auto) 0.03 (0.00-0.03) X10*3/uL Absolute Neuts (auto) 7.7 (2.0-8.3) x10*3/uL Absolute Nucleated RBC 0.000 (0.0-0.012) X10*3/uL Nucleated RBC % (auto) 0.0 (0.0-0.2) /100WBC Sodium 138 (135-145) mmol/L Potassium 4.1 (3.3-5.1) mmol/L Chloride 106 (96-108) mmol/L Carbon Dioxide 21 L (22-29) mmol/L Anion Gap 15 (12-20) BUN 13 (9-16) mg/dL Creatinine 1.06 (0.5-1.4) mg/dL Estim Creat Clear Calc 110.2 Estimated GFR > 60 Random Glucose 120 H (60-115) mg/dL Calcium 9.5 (8.4-10.2) mg/dL Total Bilirubin 0.5 (0.0-1.0) mg/dL AST 19 (5-37) U/L ALT 23 (0-40) U/L Alkaline Phosphatase 90 (39-117) U/L Total Protein 7.8 (6.5-8.0) g/dL Albumin 3.8 (3.5-5.0) g/dL Urine Color Yellow Urine Appearance Clear Urine pH 5.5 (5.0-9.0) Ur Specific Floral 1.025 (1.005-1.025) Urine Protein Negative (Neg-Trace) mg/dL Urine Glucose (UA) Negative (Negative) mg/dL Urine Ketones Negative (Negative) mg/dL Urine Blood Trace H (Negative) Urine Nitrite Negative (Negative) Ur Leukocyte Esterase Negative (Negative) Urine RBC 3-5 H (0-2) /HPF Urine WBC 0-5 (0-5) /HPF Ur Squamous Epith Cells 0-2 (0-2) /HPF Urine Bacteria None Seen (None Seen) Hyaline Casts 0-2 (0-2) /LPF Radiology Impression Discussion of test interpretation with radiology: I have reviewed the radiologist's reading. Radiologist Impression: Please see the discussion above External Record Review External record reviewed: Outpatient record, Prior outpatient labs and Prior outpatient radiology Critical Care Time Critical Care Time Critical Care Time: Yes Total Critical Care Time: 30 Attestation: I personally attest to this time spent taking care of the patient. Discharge Plan Discharge Clinical Impression: Renal colic, Ureterolithiasis, Hydronephrosis Patient Disposition: Home, Self-Care Instructions: Renal Colic (ED), Low Oxalate Diet (ED), Hydronephrosis (ED), Ureteral Stones (ED) Additional Instructions: 1. Resume all home medications as prescribed. Recommend 1000 mg of Tylenol every 6 hours as needed for pain control. 2. Continue to drink plenty of water. 3. Please call the office for Urology 1st thing in the morning to set up an appointment for re-evaluation further outpatient management. Return to the ER for any worsening symptoms. Prescriptions: New ketorolac 10 mg tablet 10 mg PO Q6H PRN (Reason: pain) Qty: 20 0RF Rx Instructions: maximum total duration of 5 days from all oral, intranasal, or parenteral formulations tamsulosin [Flomax] 0.4 mg capsule 0.4 mg PO BEDTIME Qty: 5 0RF ondansetron 4 mg tablet,disintegrating 4 mg PO Q8H PRN (Reason: nausea and vomiting) 4 Days Qty: 7 0RF No Action tamsulosin 0.4 mg capsule 0.4 mg PO DAILY Qty: 7 0RF naproxen 500 mg tablet 500 mg PO BID 7 Days Qty: 14 0RF diclofenac sodium [Voltaren Arthritis Pain] 1 % gel 2 g topical QID Qty: 100 0RF Rx Instructions: apply to single elbow, wrist or hand; for hand includes palm/fingers/back of hand lidocaine [Lidoderm] 5 % adhesive patch,medicated 1 patch topical DAILY Qty: 15 0RF Rx Instructions: leave on most painful area for up to 12 hrs cyclobenzaprine 10 mg tablet 10 mg PO TID PRN (Reason: muscle spasm) Qty: 15 0RF naproxen 500 mg tablet 500 mg PO BID PRN (Reason: pain) Qty: 30 0RF Referrals: Delilah Mccarty NP [Primary Care Provider] - Albino Chowdary MD [Physician] - Print Language: Sammarinese
[2023-12-02 16:49] VITALS: BP 137/82; PULSE 81; RESP 16; O2SAT 97
[2023-12-02] MEDS: Tamsulosin HCL 0.4 MG CAPSULE PO (16:50)
[2023-12-02] MEDS: Ketorolac Tromethamine 30 MG/ML VIAL 15 MG IVPUSH (16:50)
--- NOTE | 2023-12-02 16:54 | PC.NURSE ---
vss and up to date. pt verbalizing pain level is a 7/10 at this time. medication administered per provider order. effectiveness pending. pt seen by ED provider - pt aware of plan of care at this time. plan of care ongoing. call [place] placed within reach.
[2023-12-02 17:11] VITALS: BP 137/82; PULSE 81; RESP 16; TEMP 36.6; O2SAT 97
== END 2023-12-02 17:15 | disposition home or self-care (01) ==
PROVIDERS: Emergency Provider Student in an Organized Health Care Education/Training Program; PCP Nurse Practitioner Primary Care
DX: N13.2 Hydronephrosis with renal and ureteral calculous obstruction (principal); N23 Unspecified renal colic; Z79.899 Other long term (current) drug therapy
CPT/HCPCS: 36415; 74176; 80053; 81001; 85025; 96374; 99284; J1885

== ENCOUNTER 2023-12-08 13:46 | Outpatient (AMB) | payer MEDICAID, SELFPAY ==
--- NOTE | 2023-12-08 13:58 | MHC.OFFVIS ---
Intake Intake Visit Reasons: nephrolithiasis with hydronephrosis,hydroureter Intake Note: New Patient presents for initial visit for nephrolithiasis Urology Medications: Tamsulosin Blood Thinner: none Insulation Machine Operator Required: No Accompanied by: Sister Allergies Penicillins Allergy (Mild, Verified 12/08/23 14:30) UNKNOWN penicillin V Allergy (Unknown, Verified 12/08/23 14:30) unknown Medication List - Last Reconciled 12/08/23 by TREMAYNE Recinos- cyclobenzaprine 10 mg PO TID PRN diclofenac sodium 1% (Voltaren Arthritis Pain) 2 grams topical QID dulaglutide (Trulicity) 0.75 mg subcut QWEEK ketorolac 10 mg PO Q6H PRN lidocaine 5% (Lidoderm) 1 patch topical DAILY ondansetron 4 mg PO Q8H PRN 4 days tamsulosin 0.4 mg PO DAILY tamsulosin (Flomax) 0.4 mg PO BEDTIME ustekinumab (Stelara) mg subcut Q12W HPI HPI Comments History of Present Illness Details Nixon is a very pleasant 48-year-old male patient of Dr. Cooper who was accompanied by his sister at today's office visit. He presents to the office today as a new patient for nephrolithiasis. In discussion with the patient today he reports having seeked emergency room care approximately 2 weeks ago for left-sided flank pain and lower abdominal pain had been experiencing at which time a CT of the abdomen was ordered. These results were reviewed with the patient today. Left kidney is diffusely swollen with marked perinephric soft tissue stranding. There is mild left hydronephrosis and left hydroureter due to obstruction by a left uterine stone measuring approximately 0.7 x 0.4 cm in size at L4 level. He does report a history of nephrolithiasis however never requiring surgical intervention. When asked he does continue with left-sided flank pain radiating to the lower abdominal area and his testicles. No CVA tenderness noted on exam today. He otherwise denies urinary urgency, urinary frequency, incontinence, nocturia, hematuria, dysuria, foul smelling urine, changes to urinary stream, fever, and or chills. In office urinalysis results reviewed with the patient today. 3+ microscopic hematuria otherwise within normal limits. He reports he had been experiencing urinary urgency and frequency however feels Flomax has been helpful in relieving these symptoms. Discussed surgical intervention of nephrolithiasis at length. Discussed risks and benefits of surgical intervention. When asked he does report to be drinking plenty of water daily. He otherwise offers no other issues or concerns at this time. [facility] Social History Unable to assess alcohol history related to: Unknown Review of Systems Const All systems reviewed & are unremarkable except as noted in HPI and below Physical Exam Const General: cooperative, healthy appearing, comfortable, no acute distress, well developed, alert and awake Nutritional Appearance: overweight Orientation/consciousness: patient oriented x3 HEENT Head: Yes normal to inspection, Yes normocephalic and Yes atraumatic Ears: hearing grossly normal bilaterally Eyes General: appearance normal, both eyes and all related structures Neck Neck: Yes normal visual inspection and Yes trachea midline Chest Chest palpation & inspection: normal inspection of the chest Resp Effort & Inspection: normal respiratory effort and able to speak in complete sentences Cardio Rate: regular rate GI Inspection: Yes normal to inspection General: Yes no CVA tenderness Back/Spine/Pelvis Back: no CVA tenderness Skin General skin exam: no rashes or lesions noted Neuro General: patient oriented x3 Extrem General: Yes normal to inspection Psych Appearance: grossly normal and well kempt Mental Status: mental status grossly normal Speech and movement: Normal speech and movement present and Clear speech present Affect: normal affect Attitude: cooperative Thought process: Normal thought process present Thought content: Normal thought content present Insight: Fair insight present (Psych) Judgement: Fair judgement present (Psych) Results AMB Urinalysis, Automated UA Leukoctes 0 Javier/uL Last Edit by [employer] Sammy on 12/08/23 14:18 UA Nitrite Negative Last Edit by [employer] on 12/08/23 14:18 UA Urobilinogen 0.2 mg/dL Last Edit by [employer] on 12/08/23 14:18 UA Protein 15 mg/dL Last Edit by [employer] Sammy on 12/08/23 14:18 UA pH 6.0 Last Edit by [employer] on 12/08/23 14:18 UA Blood 200 [place]/uL Last Edit by [employer] Sammy on 12/08/23 14:18 UA Specific [place] 1.015 Last Edit by Ayala Christianson on 12/08/23 14:18 UA Ketone Negative Last Edit by Ayala Christianson on 12/08/23 14:18 UA Bilirubin 0 mg/dL Last Edit by Ayala Christianson on 12/08/23 14:18 UA Glucose 0 mg/dL Last Edit by Ayala Christianson on 12/08/23 14:18 Results Reviewed Results Reviewed: Ordering Physician: Chica Cristobal Date of Service: 12/02/23 Procedure(s): CT abdomen pelvis wo IV con Accession Number(s): [id number] cc: Chica Cristobal; SHANIQUE COOPER NP~ EXAMINATION: CT ABDOMEN AND PELVIS WITHOUT CONTRAST CLINICAL INFORMATION: Renal calculi COMPARISON: CT scan of abdomen and pelvis on 09/23/2023 TECHNIQUE: Multidetector volumetric imaging was performed from the superior aspect of the liver through the pubic symphysis. Sagittal and coronal reformatted images were obtained on the technologist's workstation. This CT examination was performed using dose optimization techniques as appropriate, variously including the following: *Automated exposure control *Adjustment of mA and/or kV according to patient size (this includes techniques or standardized protocols for targeted exams where dose is matched to indication/reason for exam; i.e. extremities or head) *Use of iterative reconstruction technique DLP: 1078.16 mGy-cm FINDINGS: CT ABDOMEN LUNG BASES: Unchanged 3.8 mm nodule is seen at posterior border of right lower lobe posterior basal segment, series 6 image #1. Unchanged 4.6 mm nodule is seen in right middle lobe lateral segment, series 6 image #7. Unchanged 4.5 mm calcified granuloma is seen in right lower lobe anterior basal segment, series 6 image #9. LIVER: There is persistent marked hepatic steatosis, mean attenuation of 8 Hounsfield units, compared to splenic attenuation of 29 Hounsfield units. GALLBLADDER AND BILIARY TREE: Gallbladder appears unremarkable without calcified stones. Common bile duct is not dilated. SPLEEN: The spleen is normal in size without focal lesion on noncontrast enhanced images. PANCREAS: The pancreas appears unremarkable on noncontrast enhanced images. ADRENAL GLANDS: Adrenal glands are normal in size without focal lesion bilaterally. KIDNEYS: The right kidney is normal in size without stones. Left kidney is diffusely swollen with marked perinephric soft tissue stranding. There are mild left hydronephrosis and left hydroureter due to obstruction by a proximal left ureteric stone measuring 0.7 x 0.4 cm in size at L4 level. No right caliectasis or dilated pelvis is seen. No dilated right ureter is found. BOWELS: There is no abnormal dilatation of the large and small bowel loops. RETROPERITONEUM: At upper L1 level, there is persistent posterior periportal lymph node directly anterior to the inferior vena cava, measuring 1.1 cm in short axis (previously 1.4 cm), series 3 image #31. BLOOD VESSELS: Abdominal aorta is normal in size and smooth in outline. ABDOMINAL WALL: Small umbilical hernia containing mesenteric fat is seen. PERITONEUM: There is no ascites. There were no abdominal peritoneal inflammatory changes seen. No free peritoneal air was seen. BONES: Multilevel large sharp syndesmophytes are present. I No fracture or dislocation. No focal bone lesion diagnostic of metastatic disease could be seen in the lumbar region. CT PELVIS URINARY BLADDER: The visualized urinary bladder is normal, filled with urine. No intraluminal stones are found. No abnormally dilated distal ureters are seen. BOWELS: There is no abnormal dilatation of the large and small bowel loops. Normal air-filled appendix is seen projecting medial and posterior to the cecum. GENITAL ORGANS: Seminal vesicles are unremarkable. Prostate gland is normal. LYMPH NODES: No abnormally enlarged iliac or inguinal lymph nodes are seen. PERITONEUM: No inflammatory changes, ascites or free peritoneal air are found in the pelvis. BONES: No fracture or dislocation. No focal bone lesion diagnostic of metastatic disease could be seen in the pelvis. IMPRESSION: 1. Interval development of left perinephric congested soft tissue stranding, Mild left hydronephrosis and left hydroureter due to obstruction by a a persistent proximal left ureteric stone measuring 0.7 x 0.4 cm in size at L4 level. 2. Persistent marked hepatic steatosis. 3. Unchanged, no evidence of right renal calculus or hydronephrosis. 4. Interval decrease in size of the upper retroperitoneal precaval lymph node. 5. Unchanged right lower lobe and right middle lobe pulmonary nodules less than 6 mm in size. According to the UPDATED 2017 Fleischner Society recommendations, the advised follow-up imaging for solid nodules <6 mm in the middle/lower lobes is no routine follow up. Assessment & Plan Assessment & Plan (1) Hydronephrosis with renal calculous obstruction: Code(s): N13.2 - Hydronephrosis with renal and ureteral calculous obstruction (2) Flank pain: Code(s): R10.9 - Unspecified abdominal pain Plan: Ureteroscopy We discussed the nature of the decision and reasonable alternatives for performing ureteroscopy. Options such as medical therapy were discussed. Interventions include chemical dissolution, ESWL, ureteroscopy with laser lithotripsy and stent placement, PCNL. The relative uncertainties and benefits related to each alternate procedure were adequately discussed. General surgical risks including, but not limited to - pain, bleeding, infection, myocardial infarction, pulmonary embolus, deep vein thrombosis and cerebrovascular accident which may result in further hospitalization were discussed.? Full disclosure of the procedure as well as all major risks, benefits and complications were discussed including but not limited to damage to the urethra, bladder and kidney infection, damage to the ureter, stent migration or malposition, scarring to the renal pelvis, remnant stone fragments, subsequent stone passage with need for secondary procedures. The overall secondary procedure rate is approximately 10-15%.? The overall clearance rate is approximately 90-95%. Success of the procedure in the short-term does not necessarily guarantee that long-term success will be maintained. Suitable follow up will need to be maintained. The patient showed understanding of discussion and wishes to proceed with - cystoscopy, retrograde, ureteroscopy, possible lithotripsy/stone basketing and stent on the left side Plan In office urinalysis results reviewed with the patient today; as noted above. Recent CT results reviewed with the patient today; as noted above. Discussed further nephrolithiasis intervention to include left-sided ureteroscopy; risks and benefits of this intervention was discussed at length. All questions were answered. Continue Flomax. Discussed, educated, and encouraged to continue drinking plenty of water daily. Will schedule for left-sided ureteroscopy as discussed. Follow-up per doctors orders; or sooner with any issues, concerns, and or questions. Orders: Orders AMB Urinalysis Automated Today Z13.9 - Encounter for screening, unspecified Patient Instructions: The patient had an opportunity to ask questions regarding the treatment plan. All questions were answered. Physical exam, labs, and imaging were discussed and reviewed in detail. As well as risks, benefits, and discussion of treatment choices. No major barriers to understanding were identified. The patient expressed understanding and agreement with the above treatment plan. The patient was made aware they should contact our office by phone for worsening of their current condition, the appearance of new symptoms, or with any questions or concerns. Compliance is encouraged with any medications and follow up testing that is ordered. It is a privilege to be allowed the opportunity to participate in? your urological care.? Again, if you have any questions or concerns If you have any questions or concerns please do not hesitate to contact me. The office is [phone]. This note is constructed using voice recognition software. While every effort has been made to ensure accuracy catering operations manager errors may have been included. Yours sincerely, CORINNE Recinos Coding Level of Care Code New Pt Level 4 (48688) Diagnoses Hydronephrosis with renal calculous obstruction N13.2 Flank pain R10.9
== END 2023-12-08 14:35 | disposition home or self-care (01) ==
PROVIDERS: PCP Nurse Practitioner Primary Care; Visit Provider Nurse Practitioner Family
DX: N13.2 Hydronephrosis with renal and ureteral calculous obstruction (principal); R10.9 Unspecified abdominal pain; Z13.9 Encounter for screening, unspecified
CPT/HCPCS: 99204

== ENCOUNTER → 2023-12-08 13:46 | Outpatient (BNVA) | payer MEDICAID, SELFPAY | PROVIDERS: PCP Nurse Practitioner Primary Care; Visit Provider Nurse Practitioner Family | DX: N13.2 Hydronephrosis with renal and ureteral calculous obstruction (principal); R10.9 Unspecified abdominal pain | CPT/HCPCS: 81003; 99212 ==

== ENCOUNTER 2023-12-15 07:28 | Day surgery (SDC) | payer MEDICAID, SELFPAY ==
--- NOTE | 2023-12-14 10:38 | P.CONAN_ITS ---
Documented by User: Theresa Galo NP 12/14/23 10:41 HPI - Anesthesia Eval Consult details Narrative: 48yo M for Left Cystoscopy, Ureteroroscopy, Retro, Laser with possible stent No PMHx from surgical provider. Likely DM, autoimmune/psoriasis? based on rx list Anesthesia Pre-Procedure Meds Is the patient on any of the following meds?: Dulaglutide (Trulicity) PMFSH Active Problems Active Problems: All Active Problems Flank pain (Acute) Hydronephrosis with renal calculous obstruction (Acute) Social History Social History Unable to assess alcohol history related to: Unknown Patient Tobacco Use Status: Never used Tobacco Use of substances other than those prescribed or required for medical reasons: No Are you DNR?: No Advance Directives: No Advance Directives Information Provided: Yes Meds Allergies Allergy/AdvReac Type Severity Reaction Status Date / Time Penicillins Allergy Mild UNKNOWN Verified 12/08/23 14:30 penicillin V Allergy Unknown unknown Verified 12/08/23 14:30 Home Medications ?Medication ?Instructions ?Recorded ?Confirmed ?Last Taken ?Type dulaglutide 0.75 mg/0.5 mL 0.75 mg subcut QWEEK 12/08/23 Unknown History subcutaneous pen injector (Trulicity) ustekinumab 90 mg/mL subcutaneous mg subcut Q12W 12/08/23 Unknown History syringe (Stelara) Assessment and Plan Assessment Anesthesia Assessment: Chart Reviewed Documented by User: Lauren Corbett MD 12/15/23 09:37 HPI - Anesthesia Eval Anesthesia Pre-Procedure Meds If Yes to any meds - educate patient: Pt education - increased risk of aspiration and Pt education - possibility of cancelled proc at provider's discretion [facility] Family History Family history of problems with anesthesia: No Surgical History History of Problems with Anesthesia: No Social History Social History Unable to assess alcohol history related to: Unknown Patient Tobacco Use Status: Never used Tobacco Use of substances other than those prescribed or required for medical reasons: No Are you DNR?: No Advance Directives: No Advance Directives Information Provided: Yes Meds Allergies Allergy/AdvReac Type Severity Reaction Status Date / Time Penicillins Allergy Mild UNKNOWN Verified 12/08/23 14:30 penicillin V Allergy Unknown unknown Verified 12/08/23 14:30 Home Medications ?Medication ?Instructions ?Recorded ?Confirmed ?Last Taken ?Type dulaglutide 0.75 mg/0.5 mL 0.75 mg subcut QWEEK 12/08/23 Unknown History subcutaneous pen injector (Trulicity) ustekinumab 90 mg/mL subcutaneous mg subcut Q12W 12/08/23 Unknown History syringe (Stelara) Assessment and Plan Assessment Anesthesia Assessment: Anesthesia Plan Discussed Final Anesthetic Review Family History of Problems with Anesthesia: No History of Problems with Anesthesia: No NPO: Yes ASA Class: II Final Preanesthetic Review: No Changes in Pt Med Stat, Meds/Allgs Chart Reviewed, Consent Obtained/Reviewed and Anes Risks/Benef Reviewed Patient Risk: Intermediate Procedure Risk: Low Anesthetic Plan Anesthetic Plan: GA
[2023-12-15] VITALS (7 sets, daily range): BP systolic 101–146; BP diastolic 51–80; PULSE 67–86; RESP 16–18; TEMP 36.1–36.5; O2SAT 94–98; BMI 48.5
--- NOTE | ~2023-12-15 | XR_ITS ---
EXAMINATION: XR ABDOMEN KUB CLINICAL INDICATION: preop lithotripsy, left midproximal ureteral stone COMPARISON: CT abdomen pelvis 12/02/2023. TECHNIQUE: AP view of the abdomen. FINDINGS: The previously seen obstructing mid left ureteral calculus at the level of L4 is again seen although better visualized on the recent CT scan. The bowel gas pattern is normal with no evidence of ileus or obstruction. No other unusual soft tissue calcifications are noted. Degenerative changes are seen in the spine and hips. XR/XR KUB IMPRESSION: Left ureteral calculus remains at the level of L4.
--- NOTE | ~2023-12-15 | FL_ITS ---
EXAMINATION: XR FLUOROSCOPY WITH IMAGES CLINICAL INFORMATION: Left-sided stone COMPARISON: 12/15/2023 KUB TECHNIQUE: Fluoroscopy Supervised By: Elizabeth. Fluoroscopy Time: 34 seconds. Cumulative Dose: 24.95 mGy. DAP: 0 Gycm2. Images: 5. FINDINGS: Multiple images obtained showing contrast within the left collecting system as well as a left ureteral stent. FL/FL guidance in OR IMPRESSION: Pyelogram as described.
[2023-12-15 08:18] LABS: Glucose, Whole Blood 131 mg/dL (60-115)
--- NOTE | 2023-12-15 08:43 | PC.NURSE ---
pt states that on thursday he had persistant pain on left side that radiated to groin and was taking oxycodone. He forced fluids/po intake of water and urinary frequency, on Thursday he did not notice anything in the toilet, no stone that he could see and no blood. He added since Thursday, he has had no pain at all and is urinating without pain/discomfort and in good amounts.
--- NOTE | 2023-12-15 09:41 | PC.NURSE ---
late entry: kub ordered and done stat with hook puller via stretcher. spoke with Dr. Morales and will be updated on reading. If stone present, to proceed, if not present to cancel surgery, pt aware.
[2023-12-15] MEDS: Lactated Ringers 1,000 ML 100 ML IVCONT (09:51)
--- NOTE | 2023-12-15 10:53 | MHC.SHP ---
Pre-Procedural Eval Section A - 24 Hr Update-Section A only Date of Service: 12/15/23 The patient is an INPATIENT: No The patient has been examined within 24 hours of the surgical procedure. The History & Physical has been completed within 30 days and I have reviewed it.: Yes Section B - Complete if H&P > 30 days Chief Complaint: Hydronephrosis ureteral calculous, left Allergies: Allergies Allergy/AdvReac Type Severity Reaction Status Date / Time Penicillins Allergy Mild UNKNOWN Verified 12/08/23 14:30 penicillin V Allergy Unknown unknown Verified 12/08/23 14:30 Plan Diagnosis/Plan: Unchanged I have reviewed the history and physical and performed a pertinent physical examination on my patient. No changes have occurred unless specified. Plan for Cystoscopy, left ureteroscopy, possible laser lithotripsy, possible ureteral stent. Risks discussed included but not limited to, possible need to repeat procedure if stone is not completely fragmented, Irritative voiding symptoms, bladder spasms, urgency, blood in urine. Time Spent With Patient Time: Total time managing care of this patient today ____ minutes.
--- NOTE | 2023-12-15 11:59 | W.PM.OPN ---
Operative Note Operative Note Date of Service: 12/15/23 Narrative: PreOperative Diagnosis:?? Left ureteral stone, left hydronephrosis Post Operative Diagnosis:?? Left ureteral stone, left hydronephrosis Procedure: - cystoscopy, left retrograde, left ureteroscopy, stent insertion, 6 Ghanaian by multi length 22 x 32 cm Surgeon:?Dr Juan José Morales Anesthesia:? General Indications for procedure: Left ureteral stone with hydronephrosis and flank pain. Procedure: After informed consent was verified the patient was brought to the operating placed on the OR table in supine position.? General Anesthesia was administered per protocol.? The patient was placed in lithotomy position, prepped and draped in the usual sterile fashion.? Safety pause time-out and side of surgery confirmed.? Antibiotics confirmed. 2% lidocaine jelly 10 mL was passed transurethrally. A 22 Ghanaian cystoscope was inserted transurethrally, the bulbous urethra was within normal limits. The prostatic urethra was nonobstructive. The bladder was visualized.? Both ureteric orifices were in normal position. An open-ended ureteral catheter was passed into the ureteral orifice and a retrograde examination was performed. There was a filling defect in the mid to proximal ureter and dilatation of the proximal ureter. A guidewire was passed through the ureteral catheter into the kidney. The balloon dilator size 12 fr by 4 cm was passed over the guide -wire the balloon was inflated to 10 mmHg and the intramural ureter was dilated for 30 seconds and repeated for another 30 seconds The balloon was deflated and removed. The cystoscope was removed, leaving the guidewire in place to use as a safety which was attached to the draping. The semi rigid ureteroscope was passed transurethrally, a 2nd guidewire was placed through the ureteroscope. The stone migrated more proximal. The ureteroscope was removed leaving 2 guidewires in the ureter. An open-ended ureteral catheter was placed over 1 of the guidewires. One guidewire was then removed, there was brisk urine drainage from the renal pelvis urine was sent for culture. A retrograde was done noting dilatation of the renal pelvis and calyces. The cystoscope was passed over the safety guidewire. A? 6 Ghanaian by multi length 22 x 32 cm stent was placed into the ureter and renal pelvis under a combination of fluoroscopy and direct visualization. The bladder was emptied.? The rigid cystoscope was removed. ? The patient tolerated the procedure well and was brought to the recovery room in stable condition. The patient will need further management to fragment and remove the stone. Complications: None Drains: Ureteral stent as dictated above
[2023-12-15] MEDS: Phenazopyridine HCL 200 MG TABLET PO (12:24)
[2023-12-15] MEDS: hydrOXYzine HCL 25 MG TABLET PO (12:28)
== END 2023-12-15 13:32 | disposition home or self-care (01) ==
PROVIDERS: PCP Nurse Practitioner Primary Care; Visit Provider Urology
PROC: (CPT 52341; principal; 2023-12-15 10:00)
DX: N13.2 Hydronephrosis with renal and ureteral calculous obstruction (principal); R10.9 Unspecified abdominal pain; Z79.85 Long-term (current) use of injectable non-insulin antidiabetic drugs; Z79.899 Other long term (current) drug therapy; Z88.0 Allergy status to penicillin
CPT/HCPCS: 52341; 52332; 74018; 82947; 87086; C1726; C1758; C1769; C2617; J1956; J2371; J2704; J3010; Q9967

== ENCOUNTER → 2023-12-15 07:28 | Outpatient (BNV) | payer MEDICAID, SELFPAY | PROVIDERS: PCP Nurse Practitioner Primary Care; Visit Provider Urology | DX: N13.2 Hydronephrosis with renal and ureteral calculous obstruction (principal) | CPT/HCPCS: 52332; 74420 ==

== ENCOUNTER 2023-12-18 13:10 | Outpatient (REF) | payer MEDICAID, SELFPAY ==
--- NOTE | ~2023-12-18 | XR_ITS ---
EXAMINATION: XR ABDOMEN KUB CLINICAL INDICATION: Follow-up left ureteric stent. COMPARISON: KUB and fluoroscopy dated 12/15/2023; CT abdomen and pelvis dated 12/02/2023. TECHNIQUE: 3 AP views of the abdomen and pelvis are submitted. FINDINGS: The bowel gas pattern is normal, with no evidence of ileus or obstruction. No unusual soft tissue calcifications are noted. No urinary calculus is presently appreciated. There is a well-positioned double pigtail left ureteric stent. No acute osseous abnormality is seen. There are left hip periarticular calcifications. XR/XR KUB IMPRESSION: A well-positioned double pigtail left ureteric stent is redemonstrated. No urinary calculus is presently appreciated.
== END 2023-12-18 13:11 | disposition home or self-care (01) ==
LOC: HO.XRAY 13:10
PROVIDERS: PCP Nurse Practitioner Primary Care; Visit Provider Urology
DX: N20.1 Calculus of ureter (principal)
CPT/HCPCS: 74018

== ENCOUNTER 2023-12-21 15:20 | Outpatient (AMB) | payer MEDICAID, SELFPAY ==
--- NOTE | 2023-12-21 15:22 | A.OFFVIS_ITS ---
Intake Visit Reasons: KUB results/pre op Intake Note: Patient presents via telephone call, for KUB Results, pre op: Meds- None Allergies to Antibiotic- Penicillins Blood Thinner- None Breaker Oiler Required: No Accompanied by: Sister Allergies Penicillins Allergy (Mild, Verified 12/23/23 12:25) UNKNOWN penicillin V Allergy (Unknown, Verified 12/23/23 12:25) unknown HPI Comments Details: Nixon is a 48-year-old male who presents for tele video follow-up. He was initially evaluated due to flank pain secondary to left obstructing ureteral stone. He is status post ureteroscopy left ureteral stent. He had a follow-up KUB done on Thursday which has not been officially read by Radiology. On my review of the film I do not see a calcification along the stent, I noted a calcification in the left kidney. I have discussed further stone management with ESWL. Discussed risks to include but not limited to, blood in the urine, bruising to the skin, kidney hematoma, possible need for another procedure if a stone fragment obstructs the ureter while passing, possible need to repeat procedure if stone is not completely fragmented. PENDING SALE TO [facility] Surgical History (Updated 12/23/23 @ 12:27 by Lindsay Claudio RN) History of tonsillectomy S/P cystoscopy with ureteral stent placement Social History Unable to assess alcohol history related to: Unknown Patient Tobacco Use Status: Current everyday Tobacco user Cigarettes Per Day: 10 Use of substances other than those prescribed or required for medical reasons: No Are you DNR?: No Advance Directives: No Advance Directives Information Provided: Yes Review of Systems Const All systems reviewed & are unremarkable except as noted in HPI and below Reports no additional complaints Eyes Reports no additional complaints ENT Reports no additional complaints Card Reports no additional complaints Resp Reports no additional complaints GI Reports no additional complaints Reports as per HPI Musc Reports no additional complaints Skin/Breast Reports system reviewed and no additional complaints, except as documented Neuro Reports no additional complaints Psych Reports no additional complaints Endo Reports no additional complaints Rocky/Lymph Reports no additional complaints Aller/Immun Reports no additional complaints Physical Exam Const General: healthy appearing, no acute distress and well developed Orientation/consciousness: patient oriented x3 HEENT Head: Yes normocephalic and Yes atraumatic Eyes Conjunctivae: conjunctivae normal Neck Neck: Yes normal visual inspection Resp Effort & Inspection: normal respiratory effort Cardio Jugular venous distension: no JVD Neuro General: patient oriented x3 Psych Appearance: grossly normal Affect: normal affect Telehealth Telehealth Telehealth Platform: [email or web address] Location of provider rendering services: practice address Location of patient: address on file Patient Identification confirmed using: Name, : Yes Telehealth method: video Patient verbally consented to treatment: Yes Patient verbally consented to billing insurance company: Yes Patient informed of any privacy concerns related to visit: Yes Assessment & Plan Assessment & Plan (1) Hydronephrosis with renal calculous obstruction: Code(s): N13.2 - Hydronephrosis with renal and ureteral calculous obstruction Category: Medical Plan Left ESWL. cystoscopy stent removal Medications: Refilled oxycodone-acetaminophen 5-325 mg (Percocet) Partial Fill upon patient request. 1 tab PO [id number] PRN 10 tabs 0RF pain Patient Instructions: The patient had an opportunity to ask questions regarding treatment plan. The patient expressed understanding and agreement with the above treatment plan. The patient is aware they should contact our office by phone for worsening of their current condition or the appearance of new symptoms. Compliance is encouraged with any medications and followup testing that is ordered. It is a privilege to be allowed the opportunity to participate in the urologic care of your patient. If you have any questions or concerns regarding treatment for the above conditions please do not hesitate to contact me. The office telephone contact is [phone]. This note is constructed in part using voice recognition software. While every effort has been made to ensure accuracy instructional coordinator errors may have been included. Yours sincerely, Juan José Morales MD Coding Level of Care Code Tele Est Pt Level 4 (47575) Diagnoses Hydronephrosis with renal calculous obstruction N13.2
== END 2023-12-21 16:04 | disposition home or self-care (01) ==
LOC: HO.HUSH 15:20
PROVIDERS: PCP Nurse Practitioner Primary Care; Visit Provider Urology
DX: N13.2 Hydronephrosis with renal and ureteral calculous obstruction (principal)
CPT/HCPCS: 99214

== ENCOUNTER → 2023-12-21 15:20 | Outpatient (BNVA) | payer MEDICAID, SELFPAY | PROVIDERS: PCP Nurse Practitioner Primary Care; Visit Provider Urology ==

== ENCOUNTER 2023-12-23 09:49 | Day surgery (SDC) | payer MEDICAID, SELFPAY ==
--- NOTE | 2023-12-22 12:21 | HO.ANESPROP2 ---
Documented by User: Theresa Galo NP 12/22/23 12:27 HPI - Anesthesia Eval Consult details Narrative: 48yo M for Left Lithotripsy ESW,possible stent removal s/p Cysto, etc 11/2023 with GA-ETT 7.5 No PMHx from surgical provider. Likely DM, autoimmune/psoriasis? based on rx list Anesthesia Pre-Procedure Meds Is the patient on any of the following meds?: GLP1/DPP4 (Trulicity) PMFSH Active Problems Active Problems: All Active Problems Left ureteral stone (Acute) Flank pain (Acute) Hydronephrosis with renal calculous obstruction (Acute) Family History Family history of problems with anesthesia: No Surgical History Surgical History (Updated 12/23/23 @ 12:27 by Lindsay Claudio RN) History of tonsillectomy S/P cystoscopy with ureteral stent placement History of Problems with Anesthesia: No Social History Social History Unable to assess alcohol history related to: Unknown Patient Tobacco Use Status: Current everyday Tobacco user Cigarettes Per Day: 10 Use of substances other than those prescribed or required for medical reasons: No Are you DNR?: No Advance Directives: No Advance Directives Information Provided: Yes Meds Allergies Allergy/AdvReac Type Severity Reaction Status Date / Time Penicillins Allergy Mild UNKNOWN Verified 12/23/23 12:25 penicillin V Allergy Unknown unknown Verified 12/23/23 12:25 Home Medications ?Medication ?Instructions ?Recorded ?Confirmed ?Last Taken ?Type dulaglutide 0.75 mg/0.5 mL 0.75 mg subcut QWEEK 12/08/23 12/23/23 12/01/23 History subcutaneous pen injector (Trulicity) ustekinumab 90 mg/mL subcutaneous mg subcut Q12W 12/08/23 Unknown History syringe (Stelara) Exam Pertinent Lab Results Pertinent Lab Results: Laboratory Tests 12/02/23 05:04 WBC 12.7 H Hgb 14.9 Hct 45.1 Plt Count 208 Sodium 138 Potassium 4.1 Chloride 106 Carbon Dioxide 21 L BUN 13 Creatinine 1.06 Assessment and Plan Assessment Anesthesia Assessment: Chart Reviewed Final Anesthetic Review Family History of Problems with Anesthesia: No History of Problems with Anesthesia: No Documented by User: Castillo Monteiro MD 12/23/23 15:56 PMFSH Surgical History Surgical History (Updated 12/23/23 @ 12:27 by Lindsay Claudio RN) History of tonsillectomy S/P cystoscopy with ureteral stent placement Social History Social History Unable to assess alcohol history related to: Unknown Patient Tobacco Use Status: Current everyday Tobacco user Cigarettes Per Day: 10 Use of substances other than those prescribed or required for medical reasons: No Are you DNR?: No Advance Directives: No Advance Directives Information Provided: Yes Meds Allergies Allergy/AdvReac Type Severity Reaction Status Date / Time Penicillins Allergy Mild UNKNOWN Verified 12/23/23 12:25 penicillin V Allergy Unknown unknown Verified 12/23/23 12:25 Home Medications ?Medication ?Instructions ?Recorded ?Confirmed ?Last Taken ?Type dulaglutide 0.75 mg/0.5 mL 0.75 mg subcut QWEEK 12/08/23 12/23/23 12/01/23 History subcutaneous pen injector (Trulicity) ustekinumab 90 mg/mL subcutaneous mg subcut Q12W 12/08/23 Unknown History syringe (Stelara) Exam Airway Mallampati Class: I TM Dist: <=3cm Neck ROM: Full Heart: ok Lungs: ok Assessment and Plan Assessment Anesthesia Assessment: Anesthesia Plan Discussed Final Anesthetic Review NPO: Yes ASA Class: III Final Preanesthetic Review: No Changes in Pt Med Stat, Meds/Allgs Chart Reviewed, Consent Obtained/Reviewed and Anes Risks/Benef Reviewed Patient Risk: High Procedure Risk: Low Anesthetic Plan Anesthetic Plan: GA and Agree w/ Assess. and Plan Disposition: Standard PACU
[2023-12-23 12:28] VITALS: BMI 49.6
[2023-12-23 12:42] VITALS: BP 141/85; PULSE 80; RESP 18; TEMP 36.9; O2SAT 97
[2023-12-23] MEDS: Lactated Ringers 1,000 ML 100 ML IVCONT (12:54)
--- NOTE | 2023-12-23 15:18 | MHC.SHP ---
Pre-Procedural Eval Section A - 24 Hr Update-Section A only Date of Service: 12/23/23 The patient is an INPATIENT: No The patient has been examined within 24 hours of the surgical procedure. The History & Physical has been completed within 30 days and I have reviewed it.: Yes Section B - Complete if H&P > 30 days Chief Complaint: Calculus of renal, ureteral stent present Allergies: Allergies Allergy/AdvReac Type Severity Reaction Status Date / Time Penicillins Allergy Mild UNKNOWN Verified 12/23/23 12:25 penicillin V Allergy Unknown unknown Verified 12/23/23 12:25 Plan Diagnosis/Plan: Unchanged I have reviewed the history and physical and performed a pertinent physical examination on my patient. No changes have occurred unless specified. Cystoscopy left ureteral stent removal. Left ESWL. Discussed risks to include but not limited to, blood in the urine, bruising to the skin, kidney hematoma, possible need for another procedure if a stone fragment obstructs the ureter while passing, possible need to repeat procedure if stone is not completely fragmented. Time Spent With Patient Time: Total time managing care of this patient today ____ minutes.
--- NOTE | 2023-12-23 16:28 | W.PM.OPN ---
Operative Note Operative Note Date of Service: 12/23/23 Narrative: PreOperative Diagnosis:? ? Left Renal stone, s/p stent Post Operative Diagnosis:?? Left Renal stone, s/p stent Procedure:?cystoscopy, left stent removal left ESWL Surgeon:?Dr Juan José Morales Anesthesia:?General Indications for procedure: The patient understands there is a risk of bruising or hematoma to the kidney, infection, and stone migration following the procedure and subsequent intervention may be required.? - Imaging 8 x 6 mm stone, at the proximal curl of the stent Procedure: After informed consent was verified the patient was brought to the operating placed on the OR table in supine position.? General Anesthesia was administered per protocol.? Safety time out was performed. Antibiotics confirmed. Imaging was displayed in the room and laterality confirmed. ESWL was performed.?The stone was visualized on both fluoroscopy and ultrasound.? Shockwave lithotripsy was performed, with a maximum rate of 120 hertz. After the first 300 shocks a pause for 3 minutes was completed.? A total of 2500 shocks to a maximum of power of 20 with a maximum rate of 120 hertz.? Some fragmentation of the stone was appreciated. The genitalia was prepped, 2 % lidocaine jelly was placed transurethrally, the disposible flexible cystoscope was inserted transurethrally, the bulbous urethra was within normal limits. The prostatic urethra was nonobstructive. the distal end of ureteral stent visualized. The grasping forceps were used and the stent was removed without difficulty. The patient tolerated the procedure well and was transferred to the recovery area upon completion. Complications: None
[2023-12-23 16:30] VITALS: BP 119/72; PULSE 84; RESP 25; TEMP 36.6; O2SAT 95
[2023-12-23 16:35] VITALS: BP 119/66; PULSE 91; RESP 20; O2SAT 93
[2023-12-23 16:40] VITALS: BP 110/75; PULSE 97; RESP 20; O2SAT 95
[2023-12-23 16:45] VITALS: BP 113/75; PULSE 81; RESP 18; O2SAT 95
[2023-12-23 17:00] VITALS: BP 124/77; PULSE 92; RESP 20; TEMP 36.3; O2SAT 95
== END 2023-12-23 17:20 | disposition home or self-care (01) ==
PROVIDERS: PCP Nurse Practitioner Primary Care; Visit Provider Urology
PROC: (CPT 50590; principal; 2023-12-23 12:10)
DX: N13.2 Hydronephrosis with renal and ureteral calculous obstruction (principal); Z96.0 Presence of urogenital implants; Z79.85 Long-term (current) use of injectable non-insulin antidiabetic drugs; Z79.899 Other long term (current) drug therapy; Z88.0 Allergy status to penicillin; F17.210 Nicotine dependence, cigarettes, uncomplicated
CPT/HCPCS: 50590; 52310; 74018; 82947; J0131; J1956; J2704; J3010

== ENCOUNTER → 2023-12-23 09:49 | Outpatient (BNV) | payer MEDICAID, SELFPAY | PROVIDERS: PCP Nurse Practitioner Primary Care; Visit Provider Urology | DX: N20.0 Calculus of kidney (principal) | CPT/HCPCS: 50590 ==

== ENCOUNTER 2024-02-16 07:35 | Outpatient (REF) | payer MEDICAID, SELFPAY ==
--- NOTE | ~2024-02-16 | US_ITS ---
EXAMINATION: US RETROPERITONEAL LIMITED (RENAL ONLY) CLINICAL INFORMATION: Calculus of kidney. COMPARISON: X-ray KUB 02/16/2024 and 12/23/2023. CT abdomen and pelvis 12/02/2023. TECHNIQUE: Real-time imaging of the kidneys. FINDINGS: RIGHT KIDNEY: 13.5 x 5.3 x 6.7 cm (SAG x AP x TRV). The kidney is normal in size, contour, and echogenicity. Renal cortical thickness is normal. No calculi or focal parenchymal lesions. No hydronephrosis. There is echogenic 0.8 x 0.8 x 0.7 cm focus in the lower pole of right kidney, most likely hemangioma LEFT KIDNEY: 12.0 x 6.2 x 4.5 cm (SAG x AP x TRV). The kidney is normal in size, contour, and echogenicity. Renal cortical thickness is normal. No hydronephrosis. There is 0.9 x 0.9 x 0.8 cm cortical cyst in interpolar cortex and there is nonobstructing 0.9 x 0.4 x 0.5 cm calculus in interpolar collecting system US/US renal BI IMPRESSION: Nephrolithiasis on the left. Cysts on the left. 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
--- NOTE | ~2024-02-16 | XR_ITS ---
EXAMINATION: XR ABDOMEN KUB CLINICAL INDICATION: Status post left ESWL. COMPARISON: None available. TECHNIQUE: AP views of the abdomen and pelvis are submitted. FINDINGS: The bowel gas pattern is normal, with no evidence of ileus or obstruction. At the lower pole of the left kidney, a 7 mm calculus is seen. Calculus Is seen. There is no acute osseous finding. XR/XR KUB IMPRESSION: A 7 mm left renal lower pole calculus is seen.
== END 2024-02-16 07:36 | disposition home or self-care (01) ==
LOC: HO.US 07:35
PROVIDERS: PCP Nurse Practitioner Primary Care; Visit Provider Urology
DX: N20.0 Calculus of kidney (principal); N20.1 Calculus of ureter; R10.9 Unspecified abdominal pain
CPT/HCPCS: 74018; 76775

== ENCOUNTER 2024-02-29 08:08 | Outpatient (AMB) | payer MEDICAID, SELFPAY ==
--- NOTE | 2024-02-29 08:26 | A.OFFVIS_ITS ---
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 He had a renal ultrasound and KUB done on 02/16/2024. The official transcriptions are pending. I have reviewed both imaging and there are residual fragments in the left kidney noted. The patient states he is doing very well since the procedure. I would like to wait on further treatment to see if he passes anymore fragments. I have discussed metabolic workup with 24 hour urine collection. High have instructed the importance of increasing his fluid intake and adding lemon increase citrate in his diet. 20 minutes spent in review of records pertaining to this visit and including [id number] discussion with the patient and documentation of this visit. Review of chart: 12/21/23--Nixon is a 48-year-old male who presents for tele video follow-up. He was initially evaluated due to flank pain secondary to left obstructing ureteral stone. He is status post ureteroscopy left ureteral stent. He had a follow-up KUB done on Thursday which has not been officially read by Radiology. On my review of the film I do not see a calcification along the stent, I noted a calcification in the left kidney. I have discussed further stone management with ESWL. Discussed risks to include but not limited to, blood in the urine, bruising to the skin, kidney hematoma, possible need for another procedure if a stone fragment obstructs the ureter while passing, possible need to repeat procedure if stone is not completely fragmented. [facility] Surgical History History of tonsillectomy S/P cystoscopy with ureteral stent placement Social History Unable to assess alcohol history related to: Unknown Patient Tobacco Use Status: Current everyday Tobacco user Cigarettes Per Day: 10 Review of Systems Const All systems reviewed & are unremarkable except as noted in HPI and below Reports no additional complaints Eyes Reports no additional complaints ENT Reports no additional complaints Card Reports no additional complaints Resp Reports no additional complaints GI Reports no additional complaints Reports as per HPI Musc Reports no additional complaints Skin/Breast Reports system reviewed and no additional complaints, except as documented Neuro Reports no additional complaints Psych Reports no additional complaints Endo Reports no additional complaints Rocky/Lymph Reports no additional complaints Aller/Immun Reports no additional complaints Results AMB Urinalysis, Automated UA Leukoctes 70 Javier/uL Last Edit by Gino Castillo LPN on 02/29/24 08:45 UA Nitrite Negative Last Edit by Gino Castillo LPN on 02/29/24 08:45 UA Urobilinogen 1 mg/dL Last Edit by Gino Castillo LPN on 02/29/24 08:45 UA Protein 15 mg/dL Last Edit by Gino Castillo LPN on 02/29/24 08:45 UA pH 6.0 Last Edit by Gino Castillo LPN on 02/29/24 08:45 UA Blood 0 [place]/uL Last Edit by Gino Castillo LPN on 02/29/24 08:45 UA Specific [place] 1.030 Last Edit by Gino Castillo LPN on 02/29/24 08:45 UA Ketone Positive Last Edit by Gino Castillo LPN on 02/29/24 08:45 UA Bilirubin 1 mg/dL Last Edit by Gino Castillo LPN on 02/29/24 08:45 UA Glucose 0 mg/dL Last Edit by Gino Castillo LPN on 02/29/24 08:45 Results Reviewed Results Reviewed: Reviewed imaging: KUB 02/16/2024-residual calcifications noted in the left kidney, renal ultrasound 02/16/24. Date of Service: 12/02/23 EXAMINATION: CT ABDOMEN AND PELVIS WITHOUT CONTRAST CLINICAL INFORMATION: Renal calculi COMPARISON: CT scan of abdomen and pelvis on 09/23/2023 TECHNIQUE: Multidetector volumetric imaging was performed from the superior aspect of the liver through the pubic symphysis. Sagittal and coronal reformatted images were obtained on the technologist's workstation. This CT examination was performed using dose optimization techniques as appropriate, variously including the following: *Automated exposure control *Adjustment of mA and/or kV according to patient size (this includes techniques or standardized protocols for targeted exams where dose is matched to indication/reason for exam; i.e. extremities or head) *Use of iterative reconstruction technique DLP: 1078.16 mGy-cm FINDINGS: CT ABDOMEN LUNG BASES: Unchanged 3.8 mm nodule is seen at posterior border of right lower lobe posterior basal segment, series 6 image #1. Unchanged 4.6 mm nodule is seen in right middle lobe lateral segment, series 6 image #7. Unchanged 4.5 mm calcified granuloma is seen in right lower lobe anterior basal segment, series 6 image #9. LIVER: There is persistent marked hepatic steatosis, mean attenuation of 8 Hounsfield units, compared to splenic attenuation of 29 Hounsfield units. GALLBLADDER AND BILIARY TREE: Gallbladder appears unremarkable without calcified stones. Common bile duct is not dilated. SPLEEN: The spleen is normal in size without focal lesion on noncontrast enhanced images. PANCREAS: The pancreas appears unremarkable on noncontrast enhanced images. ADRENAL GLANDS: Adrenal glands are normal in size without focal lesion bilaterally. KIDNEYS: The right kidney is normal in size without stones. Left kidney is diffusely swollen with marked perinephric soft tissue stranding. There are mild left hydronephrosis and left hydroureter due to obstruction by a proximal left ureteric stone measuring 0.7 x 0.4 cm in size at L4 level. No right caliectasis or dilated pelvis is seen. No dilated right ureter is found. BOWELS: There is no abnormal dilatation of the large and small bowel loops. RETROPERITONEUM: At upper L1 level, there is persistent posterior periportal lymph node directly anterior to the inferior vena cava, measuring 1.1 cm in short axis (previously 1.4 cm), series 3 image #31. BLOOD VESSELS: Abdominal aorta is normal in size and smooth in outline. ABDOMINAL WALL: Small umbilical hernia containing mesenteric fat is seen. PERITONEUM: There is no ascites. There were no abdominal peritoneal inflammatory changes seen. No free peritoneal air was seen. BONES: Multilevel large sharp syndesmophytes are present. I No fracture or dislocation. No focal bone lesion diagnostic of metastatic disease could be seen in the lumbar region. CT PELVIS URINARY BLADDER: The visualized urinary bladder is normal, filled with urine. No intraluminal stones are found. No abnormally dilated distal ureters are seen. BOWELS: There is no abnormal dilatation of the large and small bowel loops. Normal air-filled appendix is seen projecting medial and posterior to the cecum. GENITAL ORGANS: Seminal vesicles are unremarkable. Prostate gland is normal. LYMPH NODES: No abnormally enlarged iliac or inguinal lymph nodes are seen. PERITONEUM: No inflammatory changes, ascites or free peritoneal air are found in the pelvis. BONES: No fracture or dislocation. No focal bone lesion diagnostic of metastatic disease could be seen in the pelvis. IMPRESSION: 1. Interval development of left perinephric congested soft tissue stranding, Mild left hydronephrosis and left hydroureter due to obstruction by a a persistent proximal left ureteric stone measuring 0.7 x 0.4 cm in size at L4 level. 2. Persistent marked hepatic steatosis. 3. Unchanged, no evidence of right renal calculus or hydronephrosis. 4. Interval decrease in size of the upper retroperitoneal precaval lymph node. 5. Unchanged right lower lobe and right middle lobe pulmonary nodules less than 6 mm in size. According to the UPDATED 2017 Fleischner Society recommendations, the advised follow-up imaging for solid nodules <6 mm in the middle/lower lobes is no routine follow up. Assessment & Plan Assessment & Plan (1) Hydronephrosis with renal calculous obstruction: Comment: Renal ultrasound 02/16/2024 hydronephrosis resolved Code(s): N13.2 - Hydronephrosis with renal and ureteral calculous obstruction Category: Medical (2) Kidney stone on left side: Code(s): N20.0 - Calculus of kidney Category: Medical Plan 24 hour urine collection follow-up post. Increase water intake and citrate to diet. Orders: Orders AMB Urinalysis Automated Today N13.2 - Hydronephrosis with renal and ureteral calculous obstruction Patient Instructions: The patient had an opportunity to ask questions regarding treatment plan. The patient expressed understanding and agreement with the above treatment plan. The patient is aware they should contact our office by phone for worsening of their current condition or the appearance of new symptoms. Compliance is encouraged with any medications and followup testing that is ordered. It is a privilege to be allowed the opportunity to participate in the urologic care of your patient. If you have any questions or concerns regarding treatment for the above conditions please do not hesitate to contact me. The office telephone contact is [phone]. This note is constructed in part using voice recognition software. While every effort has been made to ensure accuracy director of marketing operations errors may have been included. Yours sincerely, Juan José Morales MD Coding Level of Care Code Est Pt Level 3 (31946) Diagnoses Hydronephrosis with renal calculous obstruction N13.2 Kidney stone on left side N20.0
== END 2024-02-29 08:54 | disposition home or self-care (01) ==
PROVIDERS: PCP Nurse Practitioner Primary Care; Referring Provider Nurse Practitioner Primary Care; Visit Provider Urology
DX: N13.2 Hydronephrosis with renal and ureteral calculous obstruction (principal); N20.0 Calculus of kidney
CPT/HCPCS: 99024

== ENCOUNTER → 2024-02-29 08:08 | Outpatient (BNVA) | payer MEDICAID, SELFPAY | PROVIDERS: PCP Nurse Practitioner Primary Care; Visit Provider Urology | DX: N20.0 Calculus of kidney (principal); Z98.890 Other specified postprocedural states | CPT/HCPCS: 81003; 99212 ==

== ENCOUNTER 2024-05-19 07:35 | Outpatient (REF) | payer MEDICAID, SELFPAY ==
[2024-05-19 08:16] LABS: Hematocrit 49.9 % (42.0-52.0); Hemoglobin 15.7 g/dl (14.0-18.0)
[2024-05-19 08:26] LABS: Cholesterol 148 mg/dL (<200); HDL Cholesterol 35 mg/dL (>40); LDL Cholesterol Calculated 95 mg/dL (<100); Triglycerides 90 mg/dL (<150)
[2024-05-19 08:42] LABS: HIV AB/AG Nonreactive (Nonreactive); HIV Num 1 0.05 S/CO (0.00-0.99)
[2024-05-20 13:27] LABS: RPR Rapid Plasma Reagin NON-REACTIVE (NON-REACTIVE)
== END 2024-05-19 07:36 | disposition home or self-care (01) ==
LOC: HO.LAB 07:35
PROVIDERS: PCP Nurse Practitioner Primary Care; Visit Provider Nurse Practitioner Primary Care
DX: G47.33 Obstructive sleep apnea (adult) (pediatric) (principal); Z11.3 Encounter for screening for infections with a predominantly sexual mode of transmission; E11.65 Type 2 diabetes mellitus with hyperglycemia
CPT/HCPCS: 36415; 80061; 85014; 85018; 86592; 87389

== ENCOUNTER 2024-06-17 14:31 | Outpatient (AMB) | payer MEDICAID, SELFPAY ==
--- NOTE | 2024-06-17 14:26 | A.OFFVIS_ITS ---
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 Discussed 24 hour urine results: 06/07/24-- Total volume 1.85 L, Calcium 195 mg; Oxalate 71 mg, Sodium 327, Citrate 464 mg, Uric acid 1.39 g. Instructed on importance of fluid intake, Low oxalate diet, low sodium diet. Discussed Allupurinol, vit b6 100 mg daily. Review of chart: 02/29/2024--Nixon is status post left ESWL and left ureteral stent removal on 12/23/2023. He had a renal ultrasound and KUB done on 02/16/2024. The official transcriptions are pending. I have reviewed both imaging and there are residual fragments in the left kidney noted. The patient states he is doing very well since the procedure. I would like to wait on further treatment to see if he passes anymore fragments. I have discussed metabolic workup with 24 hour urine collection. High have instructed the importance of increasing his fluid intake and adding lemon increase citrate in his diet. 20 minutes spent in review of records pertaining to this visit and including [id number] discussion with the patient and documentation of this visit. 12/21/23--Nixon is a 48-year-old male who presents for tele video follow-up. He was initially evaluated due to flank pain secondary to left obstructing ureteral stone. He is status post ureteroscopy left ureteral stent. He had a follow-up KUB done on Jordy which has not been officially read by Radiology. On my review of the film I do not see a calcification along the stent, I noted a calcification in the left kidney. I have discussed further stone management with ESWL. Discussed risks to include but not limited to, blood in the urine, bruising to the skin, kidney hematoma, possible need for another procedure if a stone fragment obstructs the ureter while passing, possible need to repeat procedure if stone is not completely fragmented. [facility] Surgical History History of tonsillectomy S/P cystoscopy with ureteral stent placement Social History Unable to assess alcohol history related to: Unknown Patient Tobacco Use Status: Current everyday Tobacco user Cigarettes Per Day: 10 Review of Systems Const All systems reviewed & are unremarkable except as noted in HPI and below Reports no additional complaints Eyes Reports no additional complaints ENT Reports no additional complaints Card Reports no additional complaints Resp Reports no additional complaints GI Reports no additional complaints Reports as per HPI Musc Reports no additional complaints Skin/Breast Reports system reviewed and no additional complaints, except as documented Neuro Reports no additional complaints Psych Reports no additional complaints Endo Reports no additional complaints Rocky/Lymph Reports no additional complaints Aller/Immun Reports no additional complaints Results Reviewed Results Reviewed: Reviewed imaging: KUB 02/16/2024-residual calcifications noted in the left kidney, renal ultrasound 02/16/24. Date of Service: 12/02/23 EXAMINATION: CT ABDOMEN AND PELVIS WITHOUT CONTRAST CLINICAL INFORMATION: Renal calculi COMPARISON: CT scan of abdomen and pelvis on 09/23/2023 TECHNIQUE: Multidetector volumetric imaging was performed from the superior aspect of the liver through the pubic symphysis. Sagittal and coronal reformatted images were obtained on the technologist's workstation. This CT examination was performed using dose optimization techniques as appropriate, variously including the following: *Automated exposure control *Adjustment of mA and/or kV according to patient size (this includes techniques or standardized protocols for targeted exams where dose is matched to indication/reason for exam; i.e. extremities or head) *Use of iterative reconstruction technique DLP: 1078.16 mGy-cm FINDINGS: CT ABDOMEN LUNG BASES: Unchanged 3.8 mm nodule is seen at posterior border of right lower lobe posterior basal segment, series 6 image #1. Unchanged 4.6 mm nodule is seen in right middle lobe lateral segment, series 6 image #7. Unchanged 4.5 mm calcified granuloma is seen in right lower lobe anterior basal segment, series 6 image #9. LIVER: There is persistent marked hepatic steatosis, mean attenuation of 8 Hounsfield units, compared to splenic attenuation of 29 Hounsfield units. GALLBLADDER AND BILIARY TREE: Gallbladder appears unremarkable without calcified stones. Common bile duct is not dilated. SPLEEN: The spleen is normal in size without focal lesion on noncontrast enhanced images. PANCREAS: The pancreas appears unremarkable on noncontrast enhanced images. ADRENAL GLANDS: Adrenal glands are normal in size without focal lesion bilaterally. KIDNEYS: The right kidney is normal in size without stones. Left kidney is diffusely swollen with marked perinephric soft tissue stranding. There are mild left hydronephrosis and left hydroureter due to obstruction by a proximal left ureteric stone measuring 0.7 x 0.4 cm in size at L4 level. No right caliectasis or dilated pelvis is seen. No dilated right ureter is found. BOWELS: There is no abnormal dilatation of the large and small bowel loops. RETROPERITONEUM: At upper L1 level, there is persistent posterior periportal lymph node directly anterior to the inferior vena cava, measuring 1.1 cm in short axis (previously 1.4 cm), series 3 image #31. BLOOD VESSELS: Abdominal aorta is normal in size and smooth in outline. ABDOMINAL WALL: Small umbilical hernia containing mesenteric fat is seen. PERITONEUM: There is no ascites. There were no abdominal peritoneal inflammatory changes seen. No free peritoneal air was seen. BONES: Multilevel large sharp syndesmophytes are present. I No fracture or dislocation. No focal bone lesion diagnostic of metastatic disease could be seen in the lumbar region. CT PELVIS URINARY BLADDER: The visualized urinary bladder is normal, filled with urine. No intraluminal stones are found. No abnormally dilated distal ureters are seen. BOWELS: There is no abnormal dilatation of the large and small bowel loops. Normal air-filled appendix is seen projecting medial and posterior to the cecum. GENITAL ORGANS: Seminal vesicles are unremarkable. Prostate gland is normal. LYMPH NODES: No abnormally enlarged iliac or inguinal lymph nodes are seen. PERITONEUM: No inflammatory changes, ascites or free peritoneal air are found in the pelvis. BONES: No fracture or dislocation. No focal bone lesion diagnostic of metastatic disease could be seen in the pelvis. IMPRESSION: 1. Interval development of left perinephric congested soft tissue stranding, Mild left hydronephrosis and left hydroureter due to obstruction by a a persistent proximal left ureteric stone measuring 0.7 x 0.4 cm in size at L4 level. 2. Persistent marked hepatic steatosis. 3. Unchanged, no evidence of right renal calculus or hydronephrosis. 4. Interval decrease in size of the upper retroperitoneal precaval lymph node. 5. Unchanged right lower lobe and right middle lobe pulmonary nodules less than 6 mm in size. According to the UPDATED 2017 Fleischner Society recommendations, the advised follow-up imaging for solid nodules <6 mm in the middle/lower lobes is no routine follow up. Assessment & Plan Assessment & Plan (1) Hydronephrosis with renal calculous obstruction: Comment: Renal ultrasound 02/16/2024 hydronephrosis resolved Code(s): N13.2 - Hydronephrosis with renal and ureteral calculous obstruction Category: Medical (2) Kidney stone on left side: Code(s): N20.0 - Calculus of kidney Category: Medical Plan Increase water intake and citrate to diet. Allopurinol 200 mg qd, Vit B 6 100 mg Medications: New pyridoxine (vitamin B6) 100 mg PO DAILY 90 tabs 3RF kidney stones allopurinol 200 mg PO DAILY 90 tabs 3RF Patient Instructions: The patient had an opportunity to ask questions regarding treatment plan. The patient expressed understanding and agreement with the above treatment plan. The patient is aware they should contact our office by phone for worsening of their current condition or the appearance of new symptoms. Compliance is encouraged with any medications and followup testing that is ordered. It is a privilege to be allowed the opportunity to participate in the urologic care of your patient. If you have any questions or concerns regarding treatment for the above conditions please do not hesitate to contact me. The office telephone contact is [phone]. This note is constructed in part using voice recognition software. While every effort has been made to ensure accuracy wet crown blocking operator errors may have been included. Yours sincerely, Juan José Morales MD Coding Level of Care Code Est Pt Level 4 (68657) Diagnoses Hydronephrosis with renal calculous obstruction N13.2 Kidney stone on left side N20.0
== END 2024-06-17 16:04 | disposition home or self-care (01) ==
LOC: HO.HUSH 14:31
PROVIDERS: PCP Nurse Practitioner Primary Care; Visit Provider Urology
DX: N13.2 Hydronephrosis with renal and ureteral calculous obstruction (principal); N20.0 Calculus of kidney
CPT/HCPCS: 99214

== ENCOUNTER → 2024-06-17 14:31 | Outpatient (BNVA) | payer MEDICAID, SELFPAY | PROVIDERS: PCP Nurse Practitioner Primary Care; Visit Provider Urology | DX: N13.2 Hydronephrosis with renal and ureteral calculous obstruction (principal) | CPT/HCPCS: 99212 ==

== ENCOUNTER 2024-12-19 07:29 | Outpatient (REF) | payer OTHER, SELFPAY ==
--- OUTSIDE RECORDS SUMMARY | 2024-12-19 07:34 | XMS_ITS | Encounter Summary ---
Author Organization [employer] Address [address] [place] [address] Care Team Providers Care Heading Pinner Name Role Phone Delilah Mccarty Primary Care Provider [phone] Reason for Visit * Reason Onset Date Comments Prior Authorization 12/14/2024 Encounter Details Date Type Department Care Team (Late st Contact Info) Description 12/14/2024 Telephone [facility] [address] [place] [address] Delilah Mccarty ANP [address] [place] [address] Prior Authorization Social History Tobacco Use Types Packs/Day Years Used Date Smoking Tobacco: Every Day Cigarettes Smokeless Tobacco: Never Alcohol Use Standard Drinks/Week Comments Not Currently 0 (1 standard drink = 0.6 oz pur e alcohol) Depression Answer Date Recorded Patient Health Questionnaire-9 Score 6 07/09/2023 Patient Health Questionnaire-9 Score 6 07/09/2023 Last PHQ-9: Questionnaire Data Not on file 1 09/08/2022 Housing Stability Answer Date Recorded What is your housing situation today? I have jacquie garcia 07/01/[address] you li ve. Do you have problems with any of the following? None of the above 07/01/2023 Food Insecurity Answer Date Recorded Within the past 12 months, y ou worried that your food would run out before you got money to buy more: Sometimes True 2022 Within the past 12 months,th e food you bought just didn't last and you didn't have enough money to get more: Sometimes True 07/01/2023 Transportation Answer Date Recorded In the past 12 months, has l ack of transportation kept you from medical appts, meetings, work or from getting things needed for daily living? No 07/01/2023 Utilities Answer Date Recorded In the past 12 months, has t he electric, gas, oil or water company threatened to shut off services in your home? No 07/01/2023 Depression Answer Date Recorded Patient Health Questionnaire-2 Score 3 07/09/2023 Sex and Gender Information Value Date Recorded Sex Assigned at Male 07/09/2023 10:30 AM EST Legal Sex Male 11:30 AM EDT Gender Identity Male 07/09/2023 10:30 AM EST Sexual Orientation Straight 07/09/2023 10 :30 AM EST documented as of this encounter Miscellaneous Notes * Telephone Encounter - Maday Sol - 12/16/2024 10:37 AM EDT Please see message below and advise as Rx for Stelara dated 09/2023 and has . Will need new rx sent prior to generating PA. Thank you * Telephone Encounter - BRUNA Monique - 12/15/2024 4:20 PM EDT Please generate for derm provider thanks, I am not prescriber * Telephone Encounter - Maday Sol - 12/15/2024 4:09 PM EDT Please see message below and advise as Rx for Stelara dated 09/2023 and has . Will need new rx sent prior to generating PA. Thank you * Telephone Encounter - Karolina Collins - 12/14/2024 11:18 AM EDT Tc from pt sister stating PA needed for ustekinumab (Stelara) injection. documented in this encounter Plan of Treatment Upcoming Encounters Date Type Department Care Team (Late st Contact Info) Description 12/30/2024 2:15 PM EDT Office Visit [facility] [address] [place] [address] Delilah Mccarty ANP [address] [place] [address] 01/06/2025 9:00 AM EDT Office Visit [facility] OPTOM[facility] [address] [place] [address] Abiodun, Ana Paula, OD [address] [place] [address] documented as of this encounter Goals Goal Patient Goal Type Associated Problems Recent Progress Patient-Stated? Author Blood Pressure < 140/90 Blood Pressure 140/79(2024 11:23 AM EST) No Norm Schwartz Smoking cessation General No Norm Schwartz Hemoglobin A1c < 7 Result Component 6.6( 4 10:38 AM EDT) No Norm Schwartz documented as of this encounter Visit Diagnoses Not on filedocumented in this encounter Additional Health Concerns Assessment Noted Time PHQ-9 Depression Total Score: 6 07/09/20 12:09 PM EST documented as of this encounter Care Teams Heading Pinner Relationship Specialty Start Date End Date Delilah Mccarty ANP [address] [place] [address] PCP - General Family Medicine 06/03/23 documented as of this encounter
--- OUTSIDE RECORDS SUMMARY | 2024-12-19 07:34 | XMS_ITS | Clinical Summary ---
Author Organization [employer] Address [address] [facility] 7t [place] [address] Care Team Providers Care Entertainer Or Variety Artist Name Role Phone Delilah Mccarty BRUNA Primary Care Provider [phone] Allergies Active Allergy Reactions Criticality Noted Date Comments Penicillins 07/09/2023 Unsure, was told as a kid was allergic Medications Blood Pressure kitIndications:Hy pertension associated with diabetes ([facility]/HCC) 1 kit in the morning. 1 kit 023 Active Blood Glucose Monitoring Suppl ([employer] Lite) w/Device kitIndications:Ty pe 2 diabetes mellitus with hyperglycemia, without long-term current use of insulin ([facility]) Use to test blood sugar 2 times daily 1 kit 023 Active Diclofenac Sodium 1 % gel PLEASE SEE ATTACHED FOR DETAILED DIRECTIONS 023 Active atorvastatin (Lipitor) 10 MG tabletIndications :Type 2 diabetes mellitus with hyperlipidemia (CMS/HCC) ([facility]) Take 1 tablet (10 mg) by mouth in the morning. 30 tablet 11 024 Active Alcohol Swabs ([employer] Prep) 70 % padsIndications:T ype 2 diabetes mellitus with hyperglycemia, without long-term current use of insulin ([facility]) TO CLEAN SKIN BEFORE CHECKING BLOOD SUGAR 100 each 3 024 Active dulaglutide (Trulicity) 1.5 MG/0.5ML solution pen-injectorIndic ations:Type 2 diabetes mellitus with hyperlipidemia (CMS/HCC) ([facility]) Inject 1.5 mg under the skin 1 (one) time per week. 4 each Active tacrolimus (Protopic) 0.1 % ointmentIndicatio ns:Psoriasis vulgaris Apply topically 2 times daily. 30 g 1 024 2024 Active lidocaine (Lidoderm) 5 % patchIndications: Chronic pain of left knee PLACE 1 PATCH TOPICALLY DAILY LEAVE ON MOST PAINFUL AREA FOR UP TO 12 HRS 30 patch 5 Active naproxen (Naprosyn) 500 MG tabletIndications :Chronic pain of left knee TAKE 1 TABLET BY MOUTH TWICE A DAY IF NEEDED FOR PAIN 40 tablet Active nicotine polacrilex (Nicorette) 2 MG gumIndications:Sm oking trying to quit Chew 1 piece of gum and place between cheek and gums every 1-2 hours [address] needed in place of cigarette 100 each 11 Active FREESTYLE LITE test stripIndications: Type 2 diabetes mellitus with hyperglycemia, without long-term current use of insulin (CMS/[facility]) Use to test blood sugar 2 times daily 100 each 024 2024 Active Lancets miscIndications:T ype 2 diabetes mellitus with hyperglycemia, without long-term current use of insulin (CMS/HCC) Use to test blood sugar 2 times daily 100 each Active triamcinolone (Kenalog) 0.1 % ointmentIndicatio ns:Psoriasis vulgaris APPLY TO AFFECTED AREA TWICE A DAY 454 g 1 Active ustekinumab (Stelara) injectionIndicati ons:Psoriasis vulgaris Inject SubQ 90 mg at 0 and 4 weeks and then 90 mg every 12 weeks 1 mL Active ustekinumab (Stelara) injectionIndicati ons:Psoriasis vulgaris SubQ D0 inject 1 ml then D 30 1 ml then every 90 days 1 mL 024 2024 Discontinued(R eorder (will not trigger notification to Pharmacy)) ustekinumab (Stelara) injectionIndicati ons:Psoriasis vulgaris SubQ D0 inject 1 ml then D 30 1 ml then every 90 days 1 mL 025 2024 Discontinued Active Problems Problem Noted Date Diagnosed Date Psoriasis vulgaris 05/06/2024 Psoriatic arthritis 05/06/2024 Type 2 diabetes mellitus wit h hyperglycemia, without long-term current use of insulin 04/13/2024 Kidney stone on left side 02/22/2024 Encounter to establish care 07/09/[address] of the abdomen 07/09/2023 Overview (07/09/2023): Images from the original note were not included. & pelvis; repeat in Jul 2023. CMP wnl except BG 05/27/23 TANO (obstructive sleep apnea) Overview (05/17/2024): Pt cont to benefit from and require CPAP/APAP/BiPAP therapy. Encounters Date Type Department Care Team Description 12/16/2024 Refill [facility] [address] [place] [phone] Son Tesfaye MD Psoriasis vulgaris 12/16/2024 Orders Only [facility] [address] [place] [phone] Son Tesfaye MD Psoriasis vulgaris (Primary Dx) 12/14/[address] [address] Delilah Mccarty ANP Prior Authorization 12/13/2024 Refill [facility] [address] [place] [phone] Delilah Mccarty ANP Psoriasis vulgaris 11/08/[address] [address] Delilah Mccarty ANP PA 11/02/[address] [address] Laura Veras [place] appt request (Tried calling pt on phon on file ,phone was not working could not leave message,call the work phone his sister picking machine operator helper,told her to have him call us to schedule appt from jul no show , was a dm f/u,was going to offer december 28 at 3pm.) 10/28/2024 11:45 AM EST Office Visit [address] [address] Son Tesfaye MD Psoriasis vulgaris (Primary Dx); Psoriatic arthritis ([facility]/HCC) 10/28/2024 Travel 10/27/2024 Telephone [facility] [address] [place], [place] [phone] Delilah Mccarty ANP from Last 3 Months Immunizations Name Administration Dates Next Due Hep B, adult 05/17/2024,10/02/2023,09/04/2023 Influenza injectable quadriv alent preservative free 07/09/2023 PPD Test 02/16/2013 Pneumococcal Conjugate PCV 20 09/04/2023 Tdap 07/09/2023 Family History Medical History Relation Name Comments Hypertension Mother Kidney disease Mother COPD Sister Rheum arthritis Sister Relation Name Status Comments Mother Sister Social History Tobacco Use Types Packs/Day Years Used Date Smoking Tobacco: Every Day Cigarettes Smokeless Tobacco: Never Tobacco Cessation:Ready to Q uit: Not Asked; Counseling Given: Not Answered Alcohol Use Standard Drinks/Week Comments Not Currently [...] Orientation Straight 07/09/2023 10 :30 AM EST Last Filed Vital Signs Vital Sign Reading Time Taken Comments Blood Pressure 140/79 10/28/2024 11:23 AM EST Pulse 70 10/28/2024 11:23 AM EST Temperature 36.5 ??C (97.7 ??F) 10/28/2024 11:[address] Respiratory Rate 14 10/28/2024 11:23 AM EST Oxygen Saturation 98% 05/17/2024 10:21 AM EDT Inhaled Oxygen Concentration - - Weight 124 kg (272 lb 6.4 oz) 10/28/2024 11:23 A M EST Height 165.1 cm (5' 5 ) 10/28/2024 11:23 AM EST Body Mass Index 45.33 10/28/2024 11:23 AM EST Plan of Treatment Upcoming Encounters Date Type Department Care Team (Late st Contact Info) Description 12/30/2024 2:15 PM EDT Office Visit [facility] [address] [place] [address] Delilah Mccarty, ANP [address] [place] [address] 01/06/2025 9:00 AM EDT Office Visit [facility] [address] [place] [address] Ana Paula Rascon, OD [address] [place] [address] Health Maintenance Due Date Last Done Comments CT Colonography 1976 Colonoscopy 1976 Colorectal Cancer Screening 1976 FIT DNA/Cologuard 1976 FIT 1976 FOBT 1976 Sigmoidoscopy 1976 Diabetes: Foot Exam 01/20/1986 Alcohol/Substance Use Screening 1988 Family Planning (PISQ) 01/20/1991 COVID-19 Vaccine ( season) 2024 Influenza Vaccine (#1) 2024 07/09/2023 SDOH Screening 07/01/2024 07/01/2023 Depression Screening 07/09/2024 07/09/2023, 07/09/20 Diabetes: Urine Protein Screening 08/03/2024 08/03/2023 Diabetes: Hemoglobin A1C 11/14/2024 05/17/2024, 06/24 Tobacco Screening 05/17/2025 05/17/2024 Lipid Panel 05/19/2025 05/19/2024, 08/03/2023 Eye Exam 08/03/2025 08/03/2023, 07/24, 08/03/2023, Additional history exists Zoster Vaccines (1 of 2) 01/20/2026 DTaP/Tdap/Td Vaccines (2 - Td or Tdap) 07/09/2033 07/09/2023 RSV Patients and Patients Aged 60 years or older (1 - 1-dose 75+ series) 01/20/2051 Hepatitis C Screening Completed 08/03/2023 Pneumococcal Vaccine: Pediatrics (0 to 5 Years) and At-Risk Patients (6 to 49) Years) Completed 09/04/2023 Hepatitis B Vaccines Completed 05/17/2024, 10/02/2023, 09/04/2023 HIV Screening Completed 05/19/2024, 08/03/2023 HIB Vaccines Aged Out No longer eligi ble based on patient's age to complete this topic HPV Vaccines Aged Out No longer eligi ble based on patient's age to complete this topic Hepatitis A Vaccines Aged Out No long er eligible based on patient's age to complete this topic IPV Vaccines Aged Out No longer eligi ble based on patient's age to complete this topic Meningococcal Vaccine Aged Out No dave constantin eligible based on patient's age to complete this topic RSV under 20 months Aged Out No longe r eligible based on patient's age to complete this topic Rotavirus Vaccines Aged Out No longer eligible based on patient's age to complete this topic Goals Goal Patient Goal Type Associated Problems Recent Progress Patient-Stated? Author Blood Pressure < 140/90 Blood Pressure 140/79(2024 11:23 AM EST) No Norm Schwartz Smoking cessation General No Norm Schwartz Hemoglobin A1c < 7 Result Component 6.6(09/24/202 4 10:38 AM EDT) No Norm Schwartz Procedures Procedure Name Priority Date/Time Associated Diagnosis Comments HIV 1/2 ANTIGEN/ANTIBODY, FOURTH GENERATION W/RFL Routine 05/19/2024 7:46 AM EDT Routine screening for STI (sexually transmitted infection) LIPID PANEL, STANDARD Routine 05/19/2024 7:46 AM EDT Type 2 diabetes mellitus with hyperglycemia, without long-term current use of insulin (CMS/HCC) POCT GLYCATED HEMOGLOBIN, TOTAL Routine 05/17/2024 10:38 AM EDT Type 2 diabetes mellitus with hyperglycemia, without long-term current use of insulin (CMS/HCC) ALBUMIN, RANDOM URINE W/CREATININE Routine 08/03/2023 10:39 AM EST Type 2 diabetes mellitus with hyperglycemia, without long-term current use of insulin (CMS/HCC) HEPATITIS PANEL, GENERAL Routine 08/03/2023 10:[address] of the abdomen Routine screening for STI (sexually transmitted infection) from Last 3 Months or Most Recently Relevant to Health Maintenance Results * HIV-1/2 Antigen and Antibodies, Fourth Generation, with Reflexes (05/19/2024 7:46 AM EDT) Pathologist [facility] HIV AB/AG Nonreactive Nonreactive [facility] Comment:HIV-1 p24 Ag and/or HIV-1/HIV-2 Ab not detected.A test result that is nonreactive does not exclude thepossibility of exposure to or infection with HIV-1 and/orHIV-2. Nonreactive results in this assay for individualswith prior exposure to HIV-1 and/or HIV-2 may be due toantigen and antibody levels that are below the limit ofdetection of this assay.The [employer] HIV Ag/Ab Combo assay result andsupplemental assay results should be interpreted inconjunction with the patient's clinical presentation,history and other laboratory results. If the results areinconsistent with clinical evidence, additional testing issuggested to confirm the result. Blood Venous blood specimen / Unknown 05/19/2024 7:46 AM EDT 05/19/2024 7:50 AM EDT Delilah Mccarty [facility] BLOOD ORDERABLES Final Resul t Performing Organization Address [facility] de Phone Number [facility] [address] [place] [phone] * (ABNORMAL) Lipid Panel, Standard (05/19/2024 7:46 AM EDT) Triglycerides 90 <150 mg/dL [facility] Comment:Desirable Triglyceri de: less than 150 mg/dLBorderline High Triglyceride 150-199 mg/dLHigh Triglyceride: 200-499 mg/dLVery High Triglyceride: greater than or equal to 5OO mg/dL Cholesterol 148 <200 mg/dL [facility] Comment:Desirable Cholestero l: less than 200 mg/dLBorderline High Cholesterol: 200-239 mg/dLHigh Cholesterol: greater than 239 mg/dL LDL Cholesterol Calculated 95 <100 mg/dL [facility] Comment:Desirable LDL: less than 100 mg/dLNear Optimal/Above Optimal LDL: 110- 129 mg/dLBorderline High LDL: 130-159 mg/dLHigh LDL: 160-189 mg/dLVery High LDL: greater than or equal to 190 mg/dL HDL Cholesterol 35(L) >40 mg/dL [facility] Comment:Desirable HDL: great er than 40 mg/dL Note: This HDL assay may give artificially low results in patients with liver disease. Blood Venous blood specimen / Unknown 05/19/2024 7:46 AM EDT 05/19/2024 7:50 AM EDT Delilah Mccarty ANP LAB BLOOD ORDERABLES Final Resul t Performing Organization Address [facility] Co de Phone Number [facility] [address] [place] [phone] * (ABNORMAL) POCT HGB A1C (05/17/2024 10:38 AM EDT) Hemoglobin A1C 6.6(A) 4.0 - 6.0 % QC Media Lot # [id number] Lot# Expiration Date ,329 Blood 05/17/2024 10:3 8 AM EDT Delilah Mccarty ANP POINT OF CARE TEST ENTER/EDIT OR DERABLES Final Result * Albumin, Random Urine W/Creatinine (08/03/2023 10:39 AM EST) Creatinine, Urine 121.98 mg/dL [facility] Microalbumin Urine 28.0 mg/L [facility] Microalbum Creatinine Ratio Ur 22.9 <30 ug/mg cr [facility] Comment:Albumin/Creatinine R atio Reference Ranges: Normal: < 30 ug/mg creatinine Microalbuminuria: 30 - 300 ug/mg creatinineClinical Albuminuria: > 300 ug/mg creatinine Urine 08/03/2023 10:3 9 AM EST 08/03/2023 11:51 AM EST Delilah Mccarty ANP LAB URINE ORDERABLES Final Resul t [facility] [address] [place] [address] [phone] * Hepatitis A,B,C Profile (08/03/2023 10:38 AM EST) Hepatitis A IgM Nonreactive Nonreactive [facility] Comment:IgM antibodies to STAUFFER V not detected; does not exclude earlyacute or recovered HAV infection. ~Hepatitis B Surface Antibody NONREACTIVE Nonreactive [facility] Comment:Nonreactive: < 8.00 mIU/mL Hepatitis B Core Antibody Nonreactive Nonreactive [facility] Hepatitis C Antibody Nonreactive Nonreactive [facility] Comment:Antibodies to HCV no t detected; does not exclude early acuteHCV infection. Hepatitis B Surface Ag Negative Negative [facility] Blood Venous blood specimen / Unknown 08/03/2023 10:38 AM EST 08/03/2023 11:16 AM EST Delilah MCFARLAND LAB BLOOD ORDERABLES Final Resul t [facility] [address] [place] [phone] from Last 3 Months or Most Recently Relevant to Health Maintenance Insurance [facility] Care Teams Entertainer Or Variety Artist Relationship Specialty Start Date End Date Delilah Mccarty ANP [address] [place] [phone] PCP - General Family Medicine 06/03/23
--- OUTSIDE RECORDS SUMMARY | 2024-12-19 07:34 | XMS_ITS | Encounter Summary ---
Author Organization [employer] Address [address] [place] [address] Care Team Providers Care Kier Boiler Name Role Phone Delilah Mccarty Primary Care Provider [phone] Reason for Visit * Reason Comments Med Refill Encounter Details Date Type Department Care Team (Late st Contact Info) Description 07/31/2024 Refill [facility] [address] [place] [address] Delilah Mccarty ANP [address] [place] [address] Smoking trying to quit Social History Tobacco Use Types Packs/Day Years [...] AM EST documented as of this encounter Plan of Treatment Upcoming Encounters Date Type Department Care Team (Late st Contact Info) Description 12/30/2024 2:15 PM EDT Office Visit [facility] [address] [place] [address] Delilah Mccarty ANP [address] [place] [address] 01/06/2025 9:00 AM EDT Office Visit [facility] OPTOMETRY [address] [place] [address] Ana Paula Rascon, OD [address] [place] [address] documented as of this encounter Goals Goal Patient Goal Type Associated Problems Recent Progress Patient-Stated? Author Blood Pressure < 140/90 Blood Pressure 140/79(2024 11:23 AM EST) No Norm Schwartz Smoking cessation General No Norm Schwartz Hemoglobin A1c < 7 Result Component 6.6( 10:38 AM EDT) No Norm Schwartz documented as of this encounter Visit Diagnoses Diagnosis Smoking trying to quit documented in this encounter Additional Health Concerns Assessment Noted Time PHQ-9 Depression Total Score: 6 07/09/20 23 12:09 PM EST documented as of this encounter Care Teams Kier Boiler Relationship Specialty Start Date End Date Delilah Mccarty ANP [address] [place] [phone] PCP - General Family Medicine 06/03/23 documented as of this encounter
--- OUTSIDE RECORDS SUMMARY | 2024-12-19 07:34 | XMS_ITS | Encounter Summary ---
Author Organization [employer] Address [address] [place] [address] Care Team Providers Care Medicare Coordinator Name Role Phone Delilah Mccarty Primary Care Provider [phone] Reason for Visit * Reason Onset Date Comments PA 11/08/2024 Encounter Details Date Type Department Care Team ([facility] st Contact Info) Description 11/08/2024 Telephone [facility] [address] [place] [address] Delilah Mccarty ANP [address] [place] [address] PA Social History Tobacco Use Types Packs/Day Years [...] encounter Miscellaneous Notes * Telephone Encounter - BRUNA Monique - 12/14/2024 11:27 AM EDT See encounter same DOS * Telephone Encounter - Karolina Collins - 12/14/2024 11:13 AM EDT Tc from pt sister regardin) dulaglutide (Trulicity) 1.5 MG/0.5ML solution pen-injector 2) ustekinumab (Stelara) injection Pt sister states been calling a few weeks ago, in order to receive the medications, the pt is waiting for a PA for both medications. Several messages have been sent but the pt has not yet received a response regarding the status. The pt's sister provided a phone number where the should contact and inform the type of diabetes and the number of insulin doses Option 1 and then option 4 for PA section. Yesterday, an update was received regarding Trulicity and it was denied. In the middle of the call with the author, the pt's sister received a call from Dr. Mccarty who explained the situation and they agreed that the pt would change insurance. The pt's sister states that she hadno questions and everything was clarified. In relation to the Stelara, a message was sent requesting the PA since it had not been sent previously. * Telephone Encounter - Della Long - 12/14/2024 10:42 AM EDT Tc from pt requesting to speak to production officer in regards prior message. Please return call [phone] * Telephone Encounter - Maday Sol - 12/14/2024 7:52 AM EDT YONATHAN denial for Trulicity received and scanned into media. If wish to appeal, please call [phone] for [id number] review. Reason for denial: requires documentation to confirm that pt has had a poor response, negative reaction, or contraindication to a formulary covered oral agent for the treatment of Type 2 Diabetes Mellitus. Please Note: Formulary Covered Oral Agents for the Treatment of Type 2 Diabetes Mellitus are: Acarbose tablet, Cycloset tablet, Diazoxide suspension, Glimepiride tablet, Glipizide tablet, Glipizide ER tablet, Glipizide XL tablet, Glipizide-Metformin tablet, Glyburide tablet, Glyburide micronized tablet, Glyburide-Metformin tablet, Glyxambi tablet, Janumet tablet, Janumet XR tablet, Januvia tablet, Jardiance, Miglitol tablet, Nateglinide tablet, Pioglitazone tablet, Pioglitazone-Glimepiride tablet, Repaglinide tablet, Synjardy, Synjardy XR, Trijardy XR. * Telephone Encounter - Maday Sol - 12/13/2024 4:08 PM EDT YONATHAN Denial for Trulicity received and scanned into media. * Telephone Encounter - Nelsy Kiran - 12/13/2024 11:51 AM EDT Tc from pt sister requesting to speak with a manager of merchandising regarding PA . States is concern to why its been couple months and that pt has been without meds. Best contact # [phone] * Telephone Encounter - Maday Sol - 12/07/2024 9:43 AM EDT Previous note dated 11/11 inaccurate. PA not processed for Zepbound for this patient. PA generated in [facility] today for Trulicity. Pending decision. Fonseca: [id number] PA Drug: Trulicity 1.5MG/0.5ML auto-injectors * Telephone Encounter - Lata Bundy - 12/07/2024 8:40 AM EDT Patient walked in requesting update on PA. Patient says he called [facility] and they advised that they have not received any PA for Zepbound 2.5mg medication. Patient says he has not had injection since July. * Telephone Encounter - Maday Sol - 11/11/2024 3:59 PM EDT PA initiated on Covermymeds for Zepbound 2.5mg/0.5mL . Approval/denial pending. Fonseca: [id number]) Rx #: [id number] * Telephone Encounter - Lata Bundy - 11/08/2024 11:35 AM EDT Patient sister walked in with Patient on the phone (Patient gave verbal consent to speak to sister). Patient has new insurance ([employer]) and they are requesting a PA for Trulicity. Patient has had Trulicity before just needs new PA for different insurance. documented in this encounter Plan of Treatment Upcoming Encounters Date Type Department Care Team (Late st Contact Info) Description 12/30/2024 2:15 PM EDT Office Visit [facility] [address] [place] [address] Delilah Mccarty ANP [address] [place] [address] 01/06/2025 9:00 AM EDT Office Visit [facility] OPTOMETRY [address] [place] [address] Ana Paula Rascon, OD [address] [place] [address] documented as of this encounter Goals Goal [...] documented as of this encounter Care Teams Medicare Coordinator Relationship Specialty Start Date End Date Delilah Mccarty ANP [address] [place] [address] PCP - General Family Medicine 06/03/23 documented as of this encounter
--- OUTSIDE RECORDS SUMMARY | 2024-12-19 07:34 | XMS_ITS | Encounter Summary ---
Author Organization [employer] Address [address] [facility] [address] [place] [address] Care Team Providers Care Social Security Assessor Name Role Phone Delilah Mccarty Primary Care Provider [phone] Reason for Visit * Reason Onset Date Comments Appointment Request 04/12/2024 Encounter Details Date Type Department Care Team ([facility] st Contact Info) Description 04/12/2024 Telephone [facility] [address] [place] [address] Delilah Mccarty ANP [address] [place] [address] Appointment Request Social History Tobacco Use Types Packs/Day Years Used Date Smoking Tobacco: Every Day Cigarettes 0.5 30 Smokeless Tobacco: Never Alcohol Use Standard Drinks/Week [...] encounter Miscellaneous Notes * Telephone Encounter - Keshia Patricio - 04/13/2024 12:52 PM EDT Outgoing call to pt sister Iris regarding message prior. Pt agreed to come in for office visit withPCP on 05/17/24 at 10:15AM Appointment reminder letter mailed * Telephone Encounter - Nelsy Kiran - 04/12/2024 12:59 PM EDT Tc from pt sister called in to book appt as advised by pcp but I tried to book pt in [place] but no slot available. PCP task Obinna Alicea, Please call our office ([phone]) to schedule a follow-up appointment for diabetes. Also - which dose of the Trulicity are you taking? Ideally we would have you on the 1.5mg dose once weekly dose, which was out of stock for a long time but now available. I received a request to refill the 0.75mg dose, but wanted to check with you first before filling. Please do not hesitate to call our office with any questions. Delilah Sánchez [facility] documented in this encounter Plan of Treatment Upcoming Encounters Date Type Department Care Team (Late st Contact Info) Description 12/30/2024 2:15 PM EDT Office Visit [facility] [address] [place] [address] Delilah Mccarty ANP [address] [place] [address] 01/06/2025 9:00 AM EDT Office Visit [facility] [address] [place] [address] Ana Paula Rascon, OD [address] [place] [address] documented as of this encounter Goals Goal [...] documented as of this encounter Care Teams Social Security Assessor Relationship Specialty Start Date End Date Delilah Mccarty ANP [address] [place] [address] PCP - General Family Medicine 06/03/23 documented as of this encounter
--- OUTSIDE RECORDS SUMMARY | 2024-12-19 07:34 | XMS_ITS | Encounter Summary ---
Author Organization [employer] Address [address] [facility] [address] 7[address] [place] [address] Care Team Providers Care Machine Pack Assembler Name Role Phone Delilah Mccarty Primary Care Provider [phone] Encounter Details Date Type Department Care Team (Late st Contact Info) Description 12/16/2024 Orders Only [facility] MEDICINE [address] [place] [address] Son Tesfaye MD 230 [place] [address] Psoriasis vulgaris (Primary Dx) Social History Tobacco Use Types Packs/Day Years [...] AM EST documented as of this encounter Progress Notes * Son Tesfaye MD - 12/16/2024 1:01 PM EDT Please advise patient to complete blood work ordered for monitoring while on Stelara. documented in this encounter Plan of Treatment Upcoming Encounters Date Type Department Care Team (Late st Contact Info) Description 12/30/2024 2:15 PM EDT Office Visit [facility] MEDICINE [address] [place] [address] Delilah Mccarty ANP [address] [place] [address] 01/06/2025 9:00 AM EDT Office Visit [facility] OPTOMETRY [address] [place] [address] Abiodun, Megan, OD 230 [place] [address] Scheduled Orders Name Type Priority Associated Diagnoses Orde r Schedule QuantiFERON TB Gold Lab Routine Psoriasis vulgaris Expected: 12/16/2024 (Approximate), Expires: 12/16/2025 documented as of this encounter Goals Goal Patient Goal Type Associated Problems Recent Progress Patient-Stated? Author Blood Pressure < 140/90 Blood Pressure 140/79(2024 11:23 AM EST) No Norm Schwartz Smoking cessation General No Norm Schwartz Hemoglobin A1c < 7 Result Component 6.6( 4 10:38 AM EDT) No Norm Schwartz documented as of this encounter Visit Diagnoses Diagnosis Psoriasis vulgaris- Primary Other psoriasis documented in this encounter Additional Health Concerns Assessment Noted Time PHQ-9 Depression Total Score: 6 07/09/20 23 12:09 PM EST documented as of this encounter Care Teams Machine Pack Assembler Relationship Specialty Start Date End Date Delilah Mccarty ANP [address] [place] [address] PCP - General Family Medicine 06/03/23 documented as of this encounter
--- OUTSIDE RECORDS SUMMARY | 2024-12-19 07:34 | XMS_ITS | Encounter Summary ---
Author Organization [employer] Address [address] [facility] 7t [place] [address] Care Team Providers Care Reverse Engineer Name Role Phone Delilah Mccarty Primary Care Provider [phone] Reason for Visit * Reason Onset Date Comments Prior Authorization 02/05/2024 Encounter Details Date Type Department Care Team (Late st Contact Info) Description 02/05/2024 Telephone [facility] MEDICINE [address] [place] [address] Delilah Mccarty ANP [address] [place] [address] Prior Authorization Social History Tobacco Use Types [...] encounter Miscellaneous Notes * Telephone Encounter - Vannessa Prince - 02/05/2024 10:30 AM EDT Tc from sister calling requesting a PA for ustekinumab (Stelara) injection documented in this encounter Plan of Treatment Upcoming Encounters Date Type Department Care Team (Late st Contact Info) Description 12/30/2024 2:15 PM EDT Office Visit [facility] MEDICINE [address] [place] [address] Delilah Mccarty, BRUNA [address] [place] [address] 01/06/2025 9:00 AM EDT Office Visit [facility] OPTOMETRY [address] [place] [address] Abiodun, Ana Paula, OD [address] [place] [address] documented as of this encounter Goals Goal [...] documented as of this encounter Care Teams Reverse Engineer Relationship Specialty Start Date End Date Delilah Mccarty ANP [address] [place] [address] PCP - General Family Medicine 06/03/23 documented as of this encounter
--- OUTSIDE RECORDS SUMMARY | 2024-12-19 07:34 | XMS_ITS | Encounter Summary ---
Author Organization [employer] Address [address] [facility] [address] [place] [address] Care Team Providers Care Body Hanger Name Role Phone Delilah Mccarty Primary Care Provider [phone] Reason for Visit * Reason Comments Med Refill Encounter Details Date Type Department Care Team (Late st Contact Info) Description 12/02/2023 Refill [facility] MED[facility]INE [address] [place] [address] Delilah Mccarty ANP [address] [place] [address] Smoking trying to quit Social History Tobacco [...] Description 12/30/2024 2:15 PM EDT Office Visit [facility] MEDICINE [address] [place] [address] Delilah Mccarty ANP [address] [place] [address] 01/06/2025 9:00 AM EDT Office Visit [facility] OPTOMETRY [address] [place] [address] Ana Paula Rascon, OD 230 [place] [address] documented as of this encounter Goals Goal [...] documented as of this encounter Care Teams Body Hanger Relationship Specialty Start Date End Date Delilah Mccarty ANP [address] [place] [address] PCP - General Family Medicine 06/03/23 documented as of this encounter
--- OUTSIDE RECORDS SUMMARY | 2024-12-19 07:34 | XMS_ITS | Encounter Summary ---
Author Organization [employer] Address [address] [facility] [address] [address] 7[address] [place] [address] Care Team Providers Care Garbage Truck Driver Name Role Phone Delilah Mccarty BRUNA Primary Care Provider [phone] Reason for Visit * Reason Comments Med Refill Encounter Details Date Type Department Care Team (Late st Contact Info) Description 02/23/[address] [facility] MEDICINE [address] [place] [address] Son Tesfaye MD 230 [place] [address] Folliculitis Social History Tobacco Use Types Packs/Day Years [...] Description 12/30/2024 2:15 PM EDT Office Visit [facility] MEDICINE [address] [place] [address] Delilah Mccarty ANP 230 [place] [address] 01/06/2025 9:00 AM EDT Office Visit [facility] OPTOMETRY [address] [place] [address] Abiodun, Ana Paula, OD 230 [place] [address] documented as of this encounter Goals Goal Patient Goal Type Associated Problems Recent Progress Patient-Stated? Author Blood Pressure < 140/90 Blood Pressure 140/79(2024 11:23 AM EST) No Norm Schwartz Smoking cessation General No Norm Schwartz Hemoglobin A1c < 7 Result Component 6.6( 10:38 AM EDT) No Norm Schwartz documented as of this encounter Visit Diagnoses Diagnosis Folliculitis Other specified disease of hair and hair follicles documented in this encounter Additional Health Concerns Assessment Noted Time PHQ-9 Depression Total Score: 6 07/09/20 23 12:09 PM EST documented as of this encounter Care Teams Garbage Truck Driver Relationship Specialty Start Date End Date Delilah Mccarty ANP [address] [place] [address] PCP - General Family Medicine 06/03/23 documented as of this encounter
--- OUTSIDE RECORDS SUMMARY | 2024-12-19 07:34 | XMS_ITS | Encounter Summary ---
Author Organization [employer] Address [address] [facility] 7t [place] [address] Care Team Providers Care Watch Assembly Instructor Name Role Phone Delilah Mccarty Primary Care Provider [phone] Reason for Visit * Reason Onset Date Comments Med Refill 12/13/2024 Encounter Details Date Type Department Care Team (Late st Contact Info) Description 12/13/2024 Refill [facility]INE [address] [place] [address] Delilah Mccarty ANP 230 [place] [address] Psoriasis vulgaris Social History Tobacco Use Types Packs/Day Years [...] encounter Miscellaneous Notes * Telephone Encounter - Sherley Ortiz RN - 12/16/2024 2:18 PM EDT Telephone call placed to pt regarding below message. Sister Nara on HIPAA answered. Informed stelara refill sent. Pt has to get blood work done. Pt works. Informed can go to [facility] lab on Thursday 7-11am if that works better. She states will let him know. Ordered Quantiferon test , please advise patient to complete, part of monitoring while taking Stelara * Telephone Encounter - Areli Boss LPN - 12/13/2024 11:55 AM EDT Last seen 10/28/24. * Telephone Encounter - Nelsy Kiran - 12/13/2024 11:28 AM EDT TC from pt requesting medication refill. Medications needing refill : ustekinumab (Stelara) injection To be sent to: [facility]/pharmacy #[id number] [place] [address] documented in this encounter Plan of Treatment Upcoming Encounters Date Type Department Care Team (Late st Contact Info) Description 12/30/2024 2:15 PM EDT Office Visit [facility] MEDICINE [address] [place] [address] Delilah Mccarty ANP [address] [place] [address] 01/06/2025 9:00 AM EDT Office Visit [facility] OPTOMETRY [address] [place] [address] Abiodun, Ana Paula, OD 230 [place] [address] documented as of this encounter Goals Goal Patient Goal Type Associated Problems Recent Progress Patient-Stated? Author Blood Pressure < 140/90 Blood Pressure 140/79(2024 11:23 AM EST) No Norm Schwartz Smoking cessation General No Norm Schwartz Hemoglobin A1c < 7 Result Component 6.6( 10:38 AM EDT) No Norm Schwartz documented as of this encounter Visit Diagnoses Diagnosis Psoriasis vulgaris Other psoriasis documented in this encounter Additional Health Concerns Assessment Noted Time PHQ-9 Depression Total Score: 6 07/09/20 12:09 PM EST documented as of this encounter Care Teams Watch Assembly Instructor Relationship Specialty Start Date End Date Delilah Mccarty ANP 230 [place] [address] PCP - General Family Medicine 06/03/23 documented as of this encounter
--- OUTSIDE RECORDS SUMMARY | 2024-12-19 07:34 | XMS_ITS | Encounter Summary ---
Author Organization [employer] Address [address] [facility] 7t [place] [address] Care Team Providers Care Bellperson Name Role Phone Delilah Mccarty Primary Care Provider [phone] Reason for Visit * Reason Onset Date Comments Referral 01/27/2024 Encounter Details Date Type Department Care Team ([facility] st Contact Info) Description 01/27/2024 Telephone [facility] MEDICINE [address] [place] [address] Delilah Mccarty ANP [address] [place] [address] Referral Social History Tobacco Use Types Packs/Day Years [...] encounter Miscellaneous Notes * Telephone Encounter - Curtis Courtney RN - 02/23/2024 9:39 AM EDT T/C to sister for below message from PCP, sister verbally agreed and understood. * Telephone Encounter - Eleni Alfaro - 02/22/2024 11:40 AM EDT Tc from pt sister requesting status on sleep apnea referral. 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 * Telephone Encounter - Venkatesh Bertrand - 02/09/2024 12:52 PM EDT TC from sister needing a referral to another facility other then [facility] for sleep medicine. 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 If any questions please contact pt at [phone]. documented in this encounter Plan of Treatment Upcoming Encounters Date Type Department Care Team (Late st Contact Info) Description 12/30/2024 2:15 PM EDT Office Visit [facility] MEDICINE [address] [place] [address] Delilah Mccarty ANP [address] [place] [address] 01/06/2025 9:00 AM EDT Office Visit [facility] OPTOMETRY [address] [place] [address] Ana Paula Rascon, OD 230 [place] [address] documented as of this encounter Goals Goal [...] documented as of this encounter Care Teams Bellperson Relationship Specialty Start Date End Date Delilah Mccarty ANP [address] [place] [address] PCP - General Family Medicine 06/03/23 documented as of this encounter
--- OUTSIDE RECORDS SUMMARY | 2024-12-19 07:34 | XMS_ITS | Encounter Summary ---
Author Organization [employer] Address [address] [facility] [address] [facility] [address] 7[address] [place] [address] Care Team Providers Care Elementary Instructional Coach Name Role Phone Delilah Mccarty BRUNA Primary Care Provider [phone] Reason for Visit * Reason Comments Med Change Request Encounter Details Date Type Department Care Team (Late st Contact Info) Description 12/16/2024 Refill [facility] MEDICINE [address] [place] [address] Son Tesfaye MD 230 [place] [address] Psoriasis vulgaris Social History Tobacco Use Types [...] Description 12/30/2024 2:15 PM EDT Office Visit [facility] MEDICINE [address] [place] [address] Delilah Mccarty ANP [address] [place] [address] 01/06/2025 9:00 AM EDT Office Visit [facility] OPTOMETRY [address] [place] [address] Ana Paula Rascon, OD 230 [place] [address] documented as of this encounter Goals Goal Patient Goal Type Associated Problems Recent Progress Patient-Stated? Author Blood Pressure < 140/90 Blood Pressure 140/79(2024 11:23 AM EST) No Norm Schwartz Smoking cessation General No Norm Schwartz Hemoglobin A1c < 7 Result Component 6.6( 10:38 AM EDT) Norm Hardy documented as of this encounter Visit Diagnoses Diagnosis Psoriasis vulgaris Other psoriasis documented in this encounter Additional Health Concerns Assessment Noted Time PHQ-9 Depression Total Score: 6 07/09/20 23 12:09 PM EST documented as of this encounter Care Teams Elementary Instructional Coach Relationship Specialty Start Date End Date Delilah Mccarty ANP [address] [place] [address] PCP - General Family Medicine 06/03/23 documented as of this encounter
--- OUTSIDE RECORDS SUMMARY | 2024-12-19 07:34 | XMS_ITS | Encounter Summary ---
Author Organization [employer] Address [address] 7[address] [place] [address] Care Team Providers Care Sheet Metal Duct Installer Helper Name Role Phone Shanique Copoer Primary Care Provider [phone] Encounter Details Date Type Department Care Team (Late st Contact Info) Description 02/05/2024 Orders Only [facility] MEDICINE [address] [place] [address] Shanique Cooper ANP [address] [place] [address] Social History Tobacco Use Types Packs/Day Years [...] [facility] MED[facility] [address] [place] [address] Shanique Cooper, ANP [address] [place] [address] 01/06/2025 9:00 AM EDT Office Visit [facility] OPTOMETRY [address] [place] [address] Ana Paula Rascon, OD [address] [place] [address] documented as of this encounter Goals Goal Patient Goal Type Associated Problems Recent Progress Patient-Stated? Author Blood Pressure < 140/90 Blood Pressure 140/79(2024 11:23 AM EST) No Norm Schwartz Smoking cessation General No Norm Schwartz Hemoglobin A1c < 7 Result Component 6.6( 10:38 AM EDT) No Norm Schwartz documented as of this encounter Procedures Procedure Name Priority Date/Time Associated Diagnosis Comments XR KUB AND UPRIGHT 2 VIEWS Routine 02/16/2024 8:12 AM EDT US RENAL BI Routine 02/16/2024 8:00 AM EDT documented in this encounter Results * XR KUB and Upright 2 Views (02/16/2024 8:12 AM EDT) Anatomical Region Laterality Modality Radiographic Shania ging 02/16/2024 8:12 AM EDT Narrative 03/03/2024 1:00 PM EDT ? [facility] ?[address] ?[place] [address] ?XRay Report ? Signed ? Patient: Higginbotham,Vinicius ?MR#: [id number] ?? [id number] ? : 1975 ?Acct:[id number] ? Age/Sex: 49 / M ?ADM Date: 02/16/24 ? Loc: HO.US ? Attending Dr: Juan José Morales MD ? Ordering Physician: Juan José Morales MD ?? Date of Service: 02/16/24 ?? Procedure(s): XR KUB ?? Accession Number(s): [id number] ? cc: Juan José Morales MD; SHANIQUE COOPER NP ? EXAMINATION: ?? XR ABDOMEN KUB ? CLINICAL INDICATION: ?? Status post left ESWL. ? COMPARISON: ?? None available. ? TECHNIQUE: ?? AP views of the abdomen and pelvis are submitted. ? FINDINGS: ?? The bowel gas pattern is normal, with no evidence of ileus or ?? obstruction. At the lower pole of the left kidney, a 7 mm calculus is ?? seen. Calculus Is seen. There is no acute osseous finding. ? XR/XR KUB ?? IMPRESSION: ?? A 7 mm left renal lower pole calculus is seen. ? Dictated By: ?Omar Mccloud MD ? Signed By: ?<Electronically signed by Omar Mccloud MD in OV> ? 03/03/24 1256 ? DD/ 0812 ? TD/TT: ? Plastics Nurse: TIMUR ? Procedure Note Alissa Green - 03/03/[address] [address] XRay Report Signed Patient: Nixon Higginbotham AMR#: [id number] : 1975Acct:[id number] Age/Sex: 49 / MADM Date: 02/16/24 Loc: HO.US Attending Dr: Juan José Morales MD Ordering Physician: Juan José Morales MD Date of Service: 02/16/24 Procedure(s): XR KUB Accession Number(s): [id number] cc: Juan José Morales MD; SHANIQUE COOPER NP EXAMINATION: XR ABDOMEN KUB CLINICAL INDICATION: Status post left ESWL. COMPARISON: None available. TECHNIQUE: AP views of the abdomen and pelvis are submitted. FINDINGS: The bowel gas pattern is normal, with no evidence of ileus or obstruction. At the lower pole of the left kidney, a 7 mm calculus is seen. Calculus Is seen. There is no acute osseous finding. XR/XR KUB IMPRESSION: A 7 mm left renal lower pole calculus is seen. Dictated By: Omar Mccloud MD Signed By: <Electronically signed by Omar Mccloud MD in OV> 03/03/24 1256 DD/ 0812 TD/TT: Plastics Nurse: TIMUR [facility] External Provider IMG XR PROCEDURES Final Result * US RENAL BI (02/16/2024 8:00 AM EDT) Anatomical Region Laterality Modality Abdomen Ultrasound 02/16/2024 8:00 AM EDT Narrative 03/24/2024 8:56 AM EDT ? [facility] ?[address] ?[place] [address] ? Ultrasound Report ? Signed ? Patient: Higginbotham,Vinicius ?MR#: [id number] ?? [id number] ? : 1975 ?Acct:[id number] ? Age/Sex: 49 / M ?ADM Date: 06/25/24 ? Loc: HO.US ? Attending : Juan José Morales MD ? Ordering Physician: Juan José Morales MD ?? Date of Service: 02/16/24 ?? Procedure(s): US renal BI ?? Accession Number(s): [id number] ? cc: Juan José Morales MD; SHANIQUE COOPER NP ? EXAMINATION: ?? US RETROPERITONEAL LIMITED (RENAL ONLY) ? CLINICAL INFORMATION: ?? Calculus of kidney. ? COMPARISON: ?? X-ray KUB 02/16/2024 and 12/23/2023. CT abdomen and pelvis 12/02/2023. ? TECHNIQUE: ?? Real-time imaging of the kidneys. ? FINDINGS: ? RIGHT KIDNEY: 13.5 x 5.3 x 6.7 cm (SAG x AP x TRV). The kidney is ?? normal in size, contour, and echogenicity. Renal cortical thickness is ?? normal. No calculi or focal parenchymal lesions. No hydronephrosis. ?? There is echogenic 0.8 x 0.8 x 0.7 cm focus in the lower pole of right ?? kidney, most likely hemangioma ? LEFT KIDNEY: 12.0 x 6.2 x 4.5 cm (SAG x AP x TRV). The kidney is normal ?? in size, contour, and echogenicity. Renal cortical thickness is normal. ?? No hydronephrosis. There is 0.9 x 0.9 x 0.8 cm cortical cyst in ?? interpolar cortex and there is nonobstructing 0.9 x 0.4 x 0.5 cm ?? calculus in interpolar collecting system ? US/US renal BI ?? IMPRESSION: ?? Nephrolithiasis on the left. ?? Cysts on the left. 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 ? Dictated By: ?Melyssa Dior MD ? Signed By: ?<Electronically signed by Melyssa Dior MD in OV> ? 03/24/24 0852 ? DD/ 0800 ? TD/TT: ? Plastics Nurse: ? Procedure Note Norma, Image - 03/24/[address] [address] Ultrasound Report Signed Patient: Nixon Higginbotham [facility]#: [id number] : 1975Acct:[id number] Age/Sex: 49 / MADM Date: 02/16/24 Loc: . Attending Dr: Juan José Morales MD Ordering Physician: Juan José Morales MD Date of Service: 02/16/24 Procedure(s): US renal BI Accession Number(s): [id number] cc: Juan José Morales MD; SHANIQUE COOPER INTERNAL MEDICINE HOSPITALIST EXAMINATION: US RETROPERITONEAL LIMITED (RENAL ONLY) CLINICAL INFORMATION: Calculus of kidney. COMPARISON: X-ray KUB 02/16/2024 and 12/23/2023. CT abdomen and pelvis 12/02/2023. TECHNIQUE: Real-time imaging of the kidneys. FINDINGS: RIGHT KIDNEY: 13.5 x 5.3 x 6.7 cm (SAG x AP x TRV). The kidney is normal in size, contour, and echogenicity. Renal cortical thickness is normal. No calculi or focal parenchymal lesions. No hydronephrosis. There is echogenic 0.8 x 0.8 x 0.7 cm focus in the lower pole of right kidney, most likely hemangioma LEFT KIDNEY: 12.0 x 6.2 x 4.5 cm (SAG x AP x TRV). The kidney is normal in size, contour, and echogenicity. Renal cortical thickness is normal. No hydronephrosis. There is 0.9 x 0.9 x 0.8 cm cortical cyst in interpolar cortex and there is nonobstructing 0.9 x 0.4 x 0.5 cm calculus in interpolar collecting system US/US renal BI IMPRESSION: Nephrolithiasis on the left. Cysts on the left. 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 Dictated By: Melyssa Dior MD Signed By: <Electronically signed by Melyssa Dior MD in OV> 03/24/24 0852 DD/ 0800 TD/TT: Plastics Nurse: [facility] External Provider IMG US PROCEDURES Edited Result - Final documented in this encounter Visit Diagnoses Not on filedocumented in this encounter Additional Health Concerns Assessment Noted Time PHQ-9 Depression Total Score: 6 07/09/20 23 12:09 PM EST documented as of this encounter Care Teams Sheet Metal Duct Installer Helper Relationship Specialty Start Date End Date Shanique Cooper ANP [address] [place] [address] PCP - General Family Medicine 06/03/23 documented as of this encounter
[2024-12-22 05:03] LABS: Quantiferon TB Gold Plus 1 NEGATIVE (NEGATIVE); TB Test (QFT) Mitogen -Nil >10.00 IU/mL; TB Test (QFT) Nil 0.06 IU/mL; TB Test (QFT) Plus TB1 -Nil 0.02 IU/mL; TB Test (QFT) Plus TB2 -Nil 0.03 IU/mL
== END 2024-12-19 07:30 | disposition home or self-care (01) ==
LOC: HO.LAB 07:29
PROVIDERS: PCP Nurse Practitioner Primary Care; Visit Provider Internal Medicine
DX: L40.0 Psoriasis vulgaris (principal)
CPT/HCPCS: 36415; 86480

== ENCOUNTER 2025-01-13 13:08 | Outpatient (AMB) | payer OTHER, SELFPAY ==
--- NOTE | 2025-01-13 13:08 | A.OFFVIS_ITS ---
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 LV---06/17/24--Nixon is a 49-year-old male who is followed for kidney stones. Discussed 24 hour urine results: 06/07/24-- Total volume 1.85 L, Calcium 195 mg; Oxalate 71 mg, Sodium 327, Citrate 464 mg, Uric acid 1.39 g. Instructed on importance of fluid intake, Low oxalate diet, low sodium diet. Discussed Allupurinol, vit b6 100 mg daily. 02/29/2024--Nixon is status post left ESWL and left ureteral stent removal on 12/23/2023. He had a renal ultrasound and KUB done on 02/16/2024. The official transcriptions are pending. I have reviewed both imaging and there are residual fragments in the left kidney noted. The patient states he is doing very well since the procedure. I would like to wait on further treatment to see if he passes anymore fragments. I have discussed metabolic workup with 24 hour urine collection. High have instructed the importance of increasing his fluid intake and adding lemon increase citrate in his diet. 20 minutes spent in review of records pertaining to this visit and including [id number] discussion with the patient and documentation of this visit. 12/21/23--Nixon is a 48-year-old male who presents for tele video follow-up. He was initially evaluated due to flank pain secondary to left obstructing ureteral stone. He is status post ureteroscopy left ureteral stent. He had a follow-up KUB done on Thursday which has not been officially read by Radiology. On my review of the film I do not see a calcification along the stent, I noted a calcification in the left kidney. I have discussed further stone management with ESWL. Discussed risks to include but not limited to, blood in the urine, bruising to the skin, kidney hematoma, possible need for another procedure if a stone fragment obstructs the ureter while passing, possible need to repeat procedure if stone is not completely fragmented. [facility] Surgical History History of tonsillectomy S/P cystoscopy with ureteral stent placement Social History Unable to assess alcohol history related to: Unknown Patient Tobacco Use Status: Current everyday Tobacco user Cigarettes Per Day: 10 Review of Systems Const All systems reviewed & are unremarkable except as noted in HPI and below Reports no additional complaints Eyes Reports no additional complaints ENT Reports no additional complaints Card Reports no additional complaints Resp Reports no additional complaints GI Reports no additional complaints Reports as per HPI Musc Reports no additional complaints Skin/Breast Reports system reviewed and no additional complaints, except as documented Neuro Reports no additional complaints Psych Reports no additional complaints Endo Reports no additional complaints Rocky/Lymph Reports no additional complaints Aller/Immun Reports no additional complaints Telehealth Telehealth Telehealth Platform: Telephone Location of provider rendering services: practice address Location of patient: address on file Patient Identification confirmed using: Name, : Yes Telehealth method: voice only Patient verbally consented to treatment: Yes Patient verbally consented to billing insurance company: Yes Patient informed of any privacy concerns related to visit: Yes Minutes spent on Phone/Video with Pt.: 13 Results Reviewed Results Reviewed: Reviewed imaging: KUB 02/16/2024-residual calcifications noted in the left kidney, renal ultrasound 02/16/24. Date of Service: 12/02/23 EXAMINATION: CT ABDOMEN AND PELVIS WITHOUT CONTRAST CLINICAL INFORMATION: Renal calculi COMPARISON: CT scan of abdomen and pelvis on 09/23/2023 TECHNIQUE: Multidetector volumetric imaging was performed from the superior aspect of the liver through the pubic symphysis. Sagittal and coronal reformatted images were obtained on the technologist's workstation. This CT examination was performed using dose optimization techniques as appropriate, variously including the following: *Automated exposure control *Adjustment of mA and/or kV according to patient size (this includes techniques or standardized protocols for targeted exams where dose is matched to indication/reason for exam; i.e. extremities or head) *Use of iterative reconstruction technique DLP: 1078.16 mGy-cm FINDINGS: CT ABDOMEN LUNG BASES: Unchanged 3.8 mm nodule is seen at posterior border of right lower lobe posterior basal segment, series 6 image #1. Unchanged 4.6 mm nodule is seen in right middle lobe lateral segment, series 6 image #7. Unchanged 4.5 mm calcified granuloma is seen in right lower lobe anterior basal segment, series 6 image #9. LIVER: There is persistent marked hepatic steatosis, mean attenuation of 8 Hounsfield units, compared to splenic attenuation of 29 Hounsfield units. GALLBLADDER AND BILIARY TREE: Gallbladder appears unremarkable without calcified stones. Common bile duct is not dilated. SPLEEN: The spleen is normal in size without focal lesion on noncontrast enhanced images. PANCREAS: The pancreas appears unremarkable on noncontrast enhanced images. ADRENAL GLANDS: Adrenal glands are normal in size without focal lesion bilaterally. KIDNEYS: The right kidney is normal in size without stones. Left kidney is diffusely swollen with marked perinephric soft tissue stranding. There are mild left hydronephrosis and left hydroureter due to obstruction by a proximal left ureteric stone measuring 0.7 x 0.4 cm in size at L4 level. No right caliectasis or dilated pelvis is seen. No dilated right ureter is found. BOWELS: There is no abnormal dilatation of the large and small bowel loops. RETROPERITONEUM: At upper L1 level, there is persistent posterior periportal lymph node directly anterior to the inferior vena cava, measuring 1.1 cm in short axis (previously 1.4 cm), series 3 image #31. BLOOD VESSELS: Abdominal aorta is normal in size and smooth in outline. ABDOMINAL WALL: Small umbilical hernia containing mesenteric fat is seen. PERITONEUM: There is no ascites. There were no abdominal peritoneal inflammatory changes seen. No free peritoneal air was seen. BONES: Multilevel large sharp syndesmophytes are present. I No fracture or dislocation. No focal bone lesion diagnostic of metastatic disease could be seen in the lumbar region. CT PELVIS URINARY BLADDER: The visualized urinary bladder is normal, filled with urine. No intraluminal stones are found. No abnormally dilated distal ureters are seen. BOWELS: There is no abnormal dilatation of the large and small bowel loops. Normal air-filled appendix is seen projecting medial and posterior to the cecum. GENITAL ORGANS: Seminal vesicles are unremarkable. Prostate gland is normal. LYMPH NODES: No abnormally enlarged iliac or inguinal lymph nodes are seen. PERITONEUM: No inflammatory changes, ascites or free peritoneal air are found in the pelvis. BONES: No fracture or dislocation. No focal bone lesion diagnostic of metastatic disease could be seen in the pelvis. IMPRESSION: 1. Interval development of left perinephric congested soft tissue stranding, Mild left hydronephrosis and left hydroureter due to obstruction by a a persistent proximal left ureteric stone measuring 0.7 x 0.4 cm in size at L4 level. 2. Persistent marked hepatic steatosis. 3. Unchanged, no evidence of right renal calculus or hydronephrosis. 4. Interval decrease in size of the upper retroperitoneal precaval lymph node. 5. Unchanged right lower lobe and right middle lobe pulmonary nodules less than 6 mm in size. According to the UPDATED 2017 Fleischner Society recommendations, the advised follow-up imaging for solid nodules <6 mm in the middle/lower lobes is no routine follow up. Assessment & Plan Assessment & Plan (1) Kidney stone on left side: Code(s): N20.0 - Calculus of kidney Category: Medical Plan Increase water intake and citrate to diet. Allopurinol 200 mg qd, Vit B 6 100 mg Medications: Refilled allopurinol 200 mg PO DAILY 90 tabs 3RF Patient Instructions: The patient had an opportunity to ask questions regarding treatment plan. The patient expressed understanding and agreement with the above treatment plan. The patient is aware they should contact our office by phone for worsening of their current condition or the appearance of new symptoms. Compliance is encouraged with any medications and followup testing that is ordered. It is a privilege to be allowed the opportunity to participate in the urologic care of your patient. If you have any questions or concerns regarding treatment for the above conditions please do not hesitate to contact me. The office telephone contact is [phone]. This note is constructed in part using voice recognition software. While every effort has been made to ensure accuracy housekeeping staff errors may have been included. Yours sincerely, Corlis Mei-Ranjit, MD Coding Level of Care Code Tele Est Pt Level 3 (39033) Diagnoses Kidney stone on left side N20.0
--- OUTSIDE RECORDS SUMMARY | 2025-01-13 13:10 | XMS_ITS | Encounter Summary ---
Author Organization [employer] Address [address] [facility] [address] [place] [address] Care Team Providers Care Hand Marker Name Role Phone Delilah Mccarty Primary Care Provider [phone] Reason for Visit * Reason Comments Med Refill Encounter Details Date Type Department Care Team (Late st Contact Info) Description 12/02/2023 Refill [facility] [address] [place] [address] Delilah Mccarty ANP [address] [place] [address] Smoking trying to quit Social History Tobacco [...] Care Team (Late st Contact Info) Description 02/03/2025 9:15 AM EDT Office Visit [facility] [address] [place] [id number] Son Tesfaye MD [address] [place] [phone] 04/07/2025 9:15 AM EDT Office Visit [address] [address] Delilah Mccarty ANP [address] [place] [phone] documented as of this encounter Goals Goal Patient Goal Type Associated Problems Recent Progress Patient-Stated? Author Blood Pressure < 140/90 Blood Pressure 126/71(2024 2:15 PM EDT) No Norm Schwartz Smoking cessation General No Norm Schwartz Hemoglobin A1c < 7 Result Component 6.6( 2:19 PM EDT) Norm Hardy documented as of this encounter Visit Diagnoses Diagnosis Smoking trying to quit documented in this encounter Additional Health Concerns Assessment Noted Time PHQ-9 Depression Total Score: 6 07/09/20 23 12:09 PM EST documented as of this encounter Care Teams Hand Marker Relationship Specialty Start Date End Date Delilah Mccarty ANP [address] [place] [id number] PCP - General Family Medicine 06/03/23 documented as of this encounter
== END 2025-01-13 13:54 | disposition home or self-care (01) ==
LOC: HO.HUSH 13:08
PROVIDERS: PCP Nurse Practitioner Primary Care; Visit Provider Urology
DX: N20.0 Calculus of kidney (principal)
CPT/HCPCS: 99213

== ENCOUNTER 2025-02-03 09:19 | Outpatient (REF) | payer OTHER, SELFPAY ==
--- OUTSIDE RECORDS SUMMARY | 2025-02-03 09:42 | XMS_ITS | Encounter Summary ---
Author Organization [employer] Address [address] [facility] [address] [place] [address] Care Team Providers Care Mast Maker Name Role Phone Delilah Mccarty Primary Care Provider [phone] Reason for Visit * Reason Comments Med Refill Encounter Details Date Type Department Care Team (Late st Contact Info) Description 12/02/2023 Refill [facility] [address] [place] [address] Delilah Mccarty ANP [address] [place] [address] Smoking trying to quit Social History Tobacco [...] Care Team (Late st Contact Info) Description 04/07/2025 9:15 AM EDT Office Visit [facility] [address] [place] [address] Delilah Mccarty ANP [address] [place] [address] documented as of this encounter Goals Goal Patient Goal Type Associated Problems Recent Progress Patient-Stated? Author Blood Pressure < 140/90 Blood Pressure 120/80(2024 8:48 AM EDT) Norm Hardy Smoking cessation General No Norm Schwartz Hemoglobin A1c < 7 Result Component 6.6( 2:19 PM EDT) No Norm Schwartz documented as of this encounter Visit Diagnoses Diagnosis Smoking trying to quit documented in this encounter Additional Health Concerns Assessment Noted Time PHQ-9 Depression Total Score: 6 07/09/20 23 12:09 PM EST documented as of this encounter Care Teams Mast Maker Relationship Specialty Start Date End Date Delilah Mccarty ANP [address] [place] [address] PCP - General Family Medicine 06/03/23 documented as of this encounter
[2025-02-03 11:06] LABS: MANUAL DIFF FLAG NO
[2025-02-03 11:13] LABS: Basophils Percent Auto 0.5 % (0-2); Eosinophils Absolute Auto 0.4 X10*3/uL (0.0-0.4); Eosinophils Percent Auto 4.7 % (0-4); Hemoglobin 15.9 g/dl (14.0-18.0); Imm Gran Abs Auto 0.03 X10*3/uL (0.00-0.03); Imm Gran Pct Auto 0.4 % (0.0-0.4); Lymphocytes Absolute Auto 2.2 X10*3/uL (1.2-4.9); Lymphocytes Percent Auto 27.1 % (20-40); Mean Corpuscular HGB Conc 33.1 g/dl (31.0-36.0); Mean Corpuscular Hemoglobin 29.9 pg (27.0-33.0); Mean Corpuscular Volume 90.4 fL (80.0-98.0); Monocytes Absolute Auto 0.6 X10*3/uL (0.1-1.2); Monocytes Percent Auto 6.9 % (2-11); Neutrophils Absolute Auto 4.8 x10*3/uL (2.0-8.3); Neutrophils Percent Auto 60.4 % (45-73); Platelet Count 193 X10*3/uL (160-400); Red Blood Count 5.31 X10*6/uL (4.60-5.80); Red Cell Distribution Width 13.8 % (11.0-16.0); White Blood Count 7.9 X10*3/uL (4.8-10.8)
[2025-02-03 11:28] LABS: Alanine Aminotransferase 37 U/L (0-40); Albumin Level 4.2 g/dL (3.5-5.0); Alkaline Phosphatase 91 U/L (39-117); Aspartate Amino Transferase 22 U/L (5-37); Bilirubin Direct 0.1 mg/dL (0.0-0.5); Bilirubin Total 0.3 mg/dL (0.0-1.0); Total Protein 7.2 g/dL (6.5-8.0)
[2025-02-03 11:41] LABS: HBS Num1 0.93 mIU/mL (0-7.99); HBc Num1 0.11 S/CO (0.00-0.79); HBsAGNum1 0.31 S/CO (0.00-0.99); Hepatitis A Antibody IgM 0.18 Index (0-0.79); Hepatitis B Core Antibody Nonreactive (Nonreactive); Hepatitis B Surface Antigen Negative (Negative); ~HepC Num1 0.14 S/CO (0.00-0.79); ~Hepatitis A Antibody IgM Nonreactive (Nonreactive); ~Hepatitis B Surface Antibody NONREACTIVE (Nonreactive); ~Hepatitis C Antibody Nonreactive (Nonreactive)
== END 2025-02-03 09:20 | disposition home or self-care (01) ==
LOC: HO.HHCL 09:19
PROVIDERS: Visit Provider Internal Medicine
DX: L40.0 Psoriasis vulgaris (principal)
CPT/HCPCS: 36415; 80076; 85025; 86704; 86706; 86709; 86803; 87340